=== PATIENT | male | born 1965 | race Caucasian/White ===

== ENCOUNTER 2017-10-20 10:13 | Inpatient (IN) | payer OTHER ==
[~2017-10-20] VITALS: Ht 177.8 cm; Wt 93.2 kg
[~2017-10-20 10:13] MED LIST: AMLO10 PO; ASPI81CH PO; CODBUTACEC PO; DOXY100 PO; HYDACE5 PO; HYDCHL25 PO; INSDET100 SQ; INSLIS75I SC; LISHYD2012 PO; LISI20 PO; METF500 PO; NEBI10 PO; NORT25 PO; OMEP20ER PO; PRAV20 PO; SPIR25 PO; SUMA25 PO
[2017-10-20 10:46] LABS: BASOPHILS ABSOLUTE AUTO 0.04 K/mm3 (0.00-0.23); BASOPHILS PERCENT AUTO 0 % (0-2); EOSINOPHILS ABSOLUTE AUTO 0.18 K/mm3 (0.00-0.68); EOSINOPHILS PERCENT AUTO 2 % (0-6); Hematocrit 39.7 % (37.0-53.0); Hemoglobin 12.5 g/dL (13.5-17.5); IMMATURE GRAN ABSOLUTE AUTO 0.05 K/mm3 (0.00-0.10); IMMATURE GRAN PERCENT AUTO 1 % (0-1); LYMPHOCYTES ABSOLUTE AUTO 1.65 K/mm3 (0.84-5.20); LYMPHOCYTES PERCENT AUTO 16 % (21-46); MONOCYTES ABSOLUTE AUTO 0.64 K/mm3 (0.16-1.47); MONOCYTES PERCENT AUTO 6 % (4-13); Mean Corpuscular HGB Conc 31.5 g/dL (31.5-36.5); Mean Corpuscular Volume 83 fL (80-100); Mean Platelet Volume 9.6 fL (9.1-12.4); NEUTROPHILS ABSOLUTE AUTO 7.69 K/mm3 (1.96-9.15); NEUTROPHILS PERCENT AUTO 75 % (41-73); Platelet Count 338 K/mm3 (150-400); RDW Coefficient Variation 14.1 % (11.7-14.2); RDW Standard Deviation 42.5 fL (35.1-46.3); White Blood Cell Count 10.25 K/mm3 (4.00-11.30)
[2017-10-20 11:02] LABS: Bicarbonate Venous 23.9 mmol/L (24.0-30.0); PCO2 Venous 37.2 mmHg (38-42); PO2 Venous 189 mmHg (38-42); pH Blood Venous 7.41 (7.34-7.37)
[2017-10-20 11:09] LABS: Troponin I 0.024 ng/mL (0.000-0.040)
[2017-10-20 11:29] LABS: Alanine Aminotransfer (ALT/SGP 14 U/L (12-78); Albumin, Blood 2.4 g/dL (3.4-5.0); Albumin/Globulin Ratio 0.6 (0.8-1.8); Alk Phos 148 U/L (50-136); Anion Gap 8 mmol/L (6-16); Aspartate Aminotrans (AST/SGOT 8 U/L (12-37); Beta-hydroxybutyrate 1.3 mg/dL (0.2-2.8); Bilirubin, Total 0.2 mg/dL (0.1-1.0); Blood Urea Nitrogen 17 mg/dL (8-24); CO2, Blood 25 mmol/L (21-32); Calcium, Blood 8.1 mg/dL (8.5-10.1); Chloride, Blood 101 mmol/L (98-108); Creatinine, Blood 1.06 mg/dL (0.60-1.20); Globulin, Blood 4.3 g/dL (2.2-4.0); Glomerular Filtration Rate >60 (60-); Glucose, Blood 641 mg/dL (70-99); Sodium, Blood 134 mmol/L (136-145); Total Protein, Blood 6.7 g/dL (6.4-8.2)
[2017-10-20 14:08] LABS: Percent Saturation 12.7 % (20.0-50.0)
[2017-10-20 15:11] LABS: Glucose, Blood 610 mg/dL (70-99)
[2017-10-21 02:30] LABS: BASOPHILS ABSOLUTE AUTO 0.04 K/mm3 (0.00-0.23); BASOPHILS PERCENT AUTO 0 % (0-2); EOSINOPHILS ABSOLUTE AUTO 0.21 K/mm3 (0.00-0.68); EOSINOPHILS PERCENT AUTO 2 % (0-6); Hematocrit 34.3 % (37.0-53.0); Hemoglobin 10.9 g/dL (13.5-17.5); IMMATURE GRAN ABSOLUTE AUTO 0.08 K/mm3 (0.00-0.10); IMMATURE GRAN PERCENT AUTO 1 % (0-1); LYMPHOCYTES ABSOLUTE AUTO 2.21 K/mm3 (0.84-5.20); LYMPHOCYTES PERCENT AUTO 22 % (21-46); MONOCYTES ABSOLUTE AUTO 0.69 K/mm3 (0.16-1.47); MONOCYTES PERCENT AUTO 7 % (4-13); Mean Corpuscular HGB Conc 31.8 g/dL (31.5-36.5); Mean Corpuscular Volume 82 fL (80-100); Mean Platelet Volume 9.7 fL (9.1-12.4); NEUTROPHILS ABSOLUTE AUTO 7.02 K/mm3 (1.96-9.15); NEUTROPHILS PERCENT AUTO 69 % (41-73); Platelet Count 304 K/mm3 (150-400); RDW Coefficient Variation 14.3 % (11.7-14.2); RDW Standard Deviation 41.9 fL (35.1-46.3); White Blood Cell Count 10.25 K/mm3 (4.00-11.30)
[2017-10-21 02:36] LABS: Alanine Aminotransfer (ALT/SGP 12 U/L (12-78); Albumin, Blood 2.2 g/dL (3.4-5.0); Albumin/Globulin Ratio 0.6 (0.8-1.8); Alk Phos 94 U/L (50-136); Anion Gap 7 mmol/L (6-16); Aspartate Aminotrans (AST/SGOT 7 U/L (12-37); Bilirubin, Total 0.2 mg/dL (0.1-1.0); Blood Urea Nitrogen 17 mg/dL (8-24); Bun/Creatinine Ratio 19.8 (12.0-20.0); CO2, Blood 24 mmol/L (21-32); Calcium, Blood 7.8 mg/dL (8.5-10.1); Chloride, Blood 107 mmol/L (98-108); Creatinine, Blood 0.86 mg/dL (0.60-1.20); Globulin, Blood 3.8 g/dL (2.2-4.0); Glomerular Filtration Rate >60 (60-); Glucose, Blood 150 mg/dL (70-99); Potassium, Blood 3.4 mmol/L (3.5-5.5); Sodium, Blood 138 mmol/L (136-145)
[2017-10-22 05:41] LABS: Anion Gap 10 mmol/L (6-16); Blood Urea Nitrogen 13 mg/dL (8-24); Bun/Creatinine Ratio 15.4 (12.0-20.0); CHOL/HDL RATIO 7.4; CO2, Blood 23 mmol/L (21-32); Calcium, Blood 8.3 mg/dL (8.5-10.1); Chloride, Blood 101 mmol/L (98-108); Cholesterol 266 mg/dL (50-200); Creatinine, Blood 0.85 mg/dL (0.60-1.20); Glomerular Filtration Rate >60 (60-); Glucose, Blood 200 mg/dL (70-99); HDL Cholesterol 36 mg/dL (>39); LDL/HDL RATIO 4.4; Low Density Lipoprotein Chol 158 mg/dL (0-110); Potassium, Blood 3.4 mmol/L (3.5-5.5); Sodium, Blood 134 mmol/L (136-145); Triglycerides 362 mg/dL (30-160); Very Low Density Lipoprot Chol 72 mg/dL (6-32)
[2017-10-22] MEDS ORDERED: ASPI81CH PO (14:28)
[2017-10-22] MEDS ORDERED: ATOR10 PO (14:29)
[2017-10-22] MEDS ORDERED: FAMO20 PO (14:30)
[2017-10-22] MEDS ORDERED: Novolog Fl100 UNIT/1 INJ (14:32)
[2017-10-22] MEDS ORDERED: LEVEMIR FL100 UNIT/1 SC ×2 (14:32→14:34)
[2017-10-22] MEDS ORDERED: INSDET100 (14:33)
[2017-10-22] MEDS ORDERED: LISI20 PO (14:35)
[2017-10-22] MEDS ORDERED: METO25 PO (14:36)
[2017-10-22] MEDS ORDERED: SUMA25 PO (14:38)
[2017-10-22] MEDS ORDERED: METO5A PO (14:39)
== END 2017-10-22 15:40 | disposition home or self-care (01) | DRG 305 ==
LOC: ER 10:13 → MEDS 12:59
PROVIDERS: Emergency Medicine; Internal Medicine
DX: I16.0 Hypertensive urgency (principal); K31.84 Gastroparesis; E11.65 Type 2 diabetes mellitus with hyperglycemia; E11.43 Type 2 diabetes mellitus with diabetic autonomic (poly)neuropathy; I25.10 Atherosclerotic heart disease of native coronary artery without angina pectoris; K21.9 Gastro-esophageal reflux disease without esophagitis; F17.200 Nicotine dependence, unspecified, uncomplicated; E78.5 Hyperlipidemia, unspecified; J44.9 Chronic obstructive pulmonary disease, unspecified; D64.9 Anemia, unspecified; G43.909 Migraine, unspecified, not intractable, without status migrainosus; Z79.82 Long term (current) use of aspirin; Z79.899 Other long term (current) drug therapy; Z79.4 Long term (current) use of insulin; Z88.2 Allergy status to sulfonamides
CPT/HCPCS: 36415; 71046; 80048; 80053; 80061; 82010; 82728; 82803; 82947; 83036; 83540; 83550; 83605; 83880; 84443; 84484; 85025; 93005; 93010; 93306; 96361; 96374; 96375; 99285; J0360; J1200; J1650; J1815; J1817; J1885; J2270; J2405; J2765; J7030

== ENCOUNTER 2018-12-14 09:41 | Observation (INO) | payer OTHER ==
[~2018-12-14] VITALS: Ht 175.3 cm; Wt 99.4 kg
[~2018-12-14 09:41] MED LIST changes: +ATOR20 PO; +Aspirin EC81 MG PO; +FAMO20 PO; +INSDET100; +INSULANPEN SC; +LEVEMIR FL100 UNIT/1 SC; +METO25 PO; +METO5A PO; +Novolog Fl100 UNIT/1 SC; +ZESTRIL40 MG PO
[2018-12-14 10:52] LABS: BASOPHILS ABSOLUTE AUTO 0.03 K/mm3 (0.00-0.23); BASOPHILS PERCENT AUTO 0 % (0-2); EOSINOPHILS ABSOLUTE AUTO 0.33 K/mm3 (0.00-0.68); EOSINOPHILS PERCENT AUTO 3 % (0-6); Hematocrit 42.6 % (37.0-53.0); Hemoglobin 13.1 g/dL (13.5-17.5); IMMATURE GRAN ABSOLUTE AUTO 0.04 K/mm3 (0.00-0.10); IMMATURE GRAN PERCENT AUTO 0 % (0-1); LYMPHOCYTES ABSOLUTE AUTO 1.34 K/mm3 (0.84-5.20); LYMPHOCYTES PERCENT AUTO 12 % (21-46); MONOCYTES PERCENT AUTO 8 % (4-13); Mean Corpuscular HGB 27.1 pg (26.0-34.0); Mean Corpuscular HGB Conc 30.8 g/dL (31.5-36.5); Mean Corpuscular Volume 88 fL (80-100); Mean Platelet Volume 9.4 fL (9.1-12.4); NEUTROPHILS PERCENT AUTO 77 % (41-73); Platelet Count 303 K/mm3 (150-400); RDW Coefficient Variation 15.7 % (11.7-14.2); RDW Standard Deviation 50.3 fL (35.1-46.3); Red Blood Cell Count 4.84 M/mm3 (4.30-5.90); White Blood Cell Count 11.64 K/mm3 (4.00-11.30)
[2018-12-14] MEDS ORDERED: TOPI50 PO ×2 (10:54)
[2018-12-14] MEDS ORDERED: NAPR500 PO (10:59)
[2018-12-14] MEDS ORDERED: NORT25 PO (10:59)
[2018-12-14 11:18] LABS: Albumin, Blood 2.9 g/dL (3.4-5.0); Albumin/Globulin Ratio 0.7 (0.8-1.8); Bilirubin, Total 0.4 mg/dL (0.1-1.0); Bun/Creatinine Ratio 12.5 (12.0-20.0); Calcium, Blood 8.5 mg/dL (8.5-10.1); Creatinine, Blood 1.36 mg/dL (0.60-1.20); Globulin, Blood 3.9 g/dL (2.2-4.0); Potassium, Blood 3.7 mmol/L (3.5-5.5); Total Protein, Blood 6.8 g/dL (6.4-8.2); Troponin I 0.207 ng/mL (0.000-0.040)
[2018-12-14] MEDS ORDERED: VITAMIN D35000 UNIT PO (13:17)
--- NOTE | 2018-12-14 19:41 | NUR ---
SHIFT SUMMARY PT A&OX4, VSS, BEDREST, URINAL FOR VOIDING, VOIDING WELL. DEVON PO, DENIES N&V. EDU TO [facility] Q1H. FRIENDS AT BEDSIDE. REPORT GIVEN TO LEONARD WOODARD.
--- NOTE | 2018-12-15 04:26 | NUR ---
SUMMARY: NO ACUTE CONCERNS THIS SHIFT. PT VSS, A/O, TELE NSR. PT CONTINUES TO REPORT NUMBNESS TO ENTIRE R SIDE, HAS FULL ROM OF RIDE SIDE, UP WITH SBA. PT HAS BEEN GIVEN PAIN MEDS PRN, PT REPORT PAIN AT R ELBOW... OTHERWISE PT ABLE TO SLEEP. NO SAFETY CONCERNS.
[2018-12-15 04:58] LABS: Bun/Creatinine Ratio 14.5 (12.0-20.0); Calcium, Blood 8.5 mg/dL (8.5-10.1); Creatinine, Blood 1.45 mg/dL (0.60-1.20); Potassium, Blood 3.5 mmol/L (3.5-5.5)
[2018-12-15] MEDS ORDERED: CLOP75 PO (16:25)
[2018-12-15] MEDS ORDERED: LIDALL 4%-1% P1 EACH TOP (16:28)
--- NOTE | 2018-12-15 17:22 | NUR ---
discharge instructions reviewed with patient and patient questions answered. patient is waiting for his ride to arrive to take him home
--- NOTE | 2018-12-15 18:08 | NUR ---
discharge patient discharged with friend at [phone]
== END 2018-12-15 18:28 | disposition home or self-care (01) ==
LOC: ER 09:41 → SURS 09:42
PROVIDERS: Emergency Medicine; ADMIT Internal Medicine
DX: I63.9 Cerebral infarction, unspecified (principal); I16.0 Hypertensive urgency; N17.9 Acute kidney failure, unspecified; I10 Essential (primary) hypertension; E11.9 Type 2 diabetes mellitus without complications; I25.10 Atherosclerotic heart disease of native coronary artery without angina pectoris; Z23 Encounter for immunization; K21.9 Gastro-esophageal reflux disease without esophagitis; E78.5 Hyperlipidemia, unspecified; J44.9 Chronic obstructive pulmonary disease, unspecified; Z87.891 Personal history of nicotine dependence; Z88.2 Allergy status to sulfonamides; Z79.899 Other long term (current) drug therapy; Z79.82 Long term (current) use of aspirin; Z79.4 Long term (current) use of insulin
CPT/HCPCS: 36415; 70450; 70551; 71046; 73080; 80048; 80053; 82947; 83880; 84484; 85025; 90686; 93005; 93010; 93880; 96372; 96374; 96375; 97110; 97116; 97161; 99285-25; G0008; G0378; J0360; J1170; J1650; J1815; J1940; J2405

== ENCOUNTER 2019-02-05 08:10 | Observation (INO) | payer OTHER ==
[~2019-02-05] VITALS: Ht 175.3 cm; Wt 101.3 kg
[~2019-02-05 08:10] MED LIST changes: -ATOR20 PO; +ATOR80 PO; +CLOP75 PO; +LIDALL 4%-1% P1 EACH TOP; +NAPR500 PO; +TOPI50 PO; +VITAMIN D35000 UNIT PO
[2019-02-05] MEDS ORDERED: AMLO10 PO (09:23)
[2019-02-05] MEDS ORDERED: METF500 PO (09:23)
[2019-02-05] MEDS ORDERED: Bisoprolol Fumar5 MG PO (09:24)
[2019-02-05] MEDS ORDERED: BASAGLAR K100 UNIT/1 SC (12:30)
[2019-02-05] MEDS ORDERED: NOVOLOG FL100 UNIT/1 SC (12:31)
--- NOTE | 2019-02-05 13:18 | NUR ---
ASSUMED CARE / [facility]IVAL FROM [facility]: BEDSIDE REPORT RECEIVED WHEN PT ARRIVED AT 1200. HE IS A&O, PLEASANT & COOPERATIVE. HE ARRIVED VIA WC & IS ABLE TO TX FROM WC TO BED W/ SBA. TR BAND TO R RADIAL SITE W/ [address]. SITE IS FREE OF BLEEDING, BRUISING OR HEMATOMA FORMATION ON ASSUMING CARE. CAP REFILL < 3 SECONDS, PT HAS CHRONIC NUMBNESS TO R SIDE R/T HX CVA NOVEMBER 2018, HE STS THIS IS UNCHANGED W/ TR BAND IN PLACE. ASSESSMENT CHARTED, HOME MEDS HAVE BEEN ORDERED FOR TONIGHT & IN AM. PLAN IS FOR CONTINUED OBSERVATION TONIGHT & D/C HOME IN AM. WILL DEFLATE TR BAND TOLERATED & DOCUMENT IN WOUND REASSESSMENT. WILL CONTINUE TO MONITOR & UPDATE NEEDED.
--- NOTE | 2019-02-05 13:41 | NUR ---
R RADIAL SITE OOZING: ON ASSESSMENT OF RADIAL SITE, THE AREA IS OOZING A SMALL AMNT OF SS DRAINAGE. 1 CC AIR ADDED TO BAND W/ RESOLUTION OF BLEEDING. WILL DELAY TR BAND DEFLATION FOR APPROX 30 MINS & REASSESS AT THAT TIME.
--- NOTE | 2019-02-05 14:11 | NUR ---
Patient is resting when I entered the room but easily awoke at the sound of his name. Therapeutic alliance is easily established so patient openly shared about how rough the last few years have been. Patient admitted that he spent much effort increasing many areas of his life and yet did not take care of himself physically. 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 I listened empathically, facilitaed life review, explored patient's belief system and sources meaning, encouraged self care and provided pastoral cousel and prayer. Patient responded well and showed signs of restored hunter and hope. I will continue to remain available.
--- NOTE | 2019-02-05 17:29 | NUR ---
SHIFT SUMMARY: NO ACUTE CHANGES SINCE ASSUMING CARE. PT REMAINS A&O, PLEASANT & COOPERATIVE. R WRIST IMMOBILIZER IN PLACE, TR BAND DEFLATION DOCUMENTED IN WOUND CARE INTERVENTION. SHEATH SITE TO R AC IS WNL, SLIGHT AMNT DRIED BLOOD ON NAA DRESSING IS UNCHANGED. LS ARE CLEAR T/O, PT REMAINS ON RA W/ O2 SATS > 92%. MONITOR SHOWS NSR W/ HR 80s, BP STABLE. HTN AT BASELINE. BT x4, PT HAS HEALTHY APPETITE. LAST BM 02/03/19. PT STS IT IS NORMAL FOR HIM TO GO 2-3 DAYS W/O A BM. HE IS VOIDING CLEAR, YELLOW URINE W/O DIFFICULTY USING URINAL AT BEDSIDE. PT's STENT CARD HAS BEEN PLACED IN D/C FOLDER FOR ANTICIPATED D/C TOMORROW. WILL CONTINUE TO MONITOR & UPDATE NEEDED.
--- NOTE | 2019-02-05 22:53 | NUR ---
CARE ASSUMED REPORT RECEIVED, CARE ASSUMED AT 1900. PT ALERT, ORIENTED. PT DENIES CHEST PAIN/DISCOMFORT. RADIAL ACCESS SITE AND AC ACCESS SITE STABLE, ASSESSMENTS VERIFIED UNCHANGED WITH OFFGOING NURSE VANCE SILVESTRE. MONITOR SHOWS NORMAL SINUS RHYTHM, RATE 70'S-80'S. BP ELEVATED, SCHEDULED BP MEDS ADMIN. PT AFEBRILE. SHE SHIFT ASSESSMENT. PT CALLING APPROPRIATELY FOR NEEDS, STAND BY ASSIST FOR ADL'S.
--- NOTE | 2019-02-05 23:55 | NUR ---
DR. NAVARRO COMMUNICATION SPOKE WITH DR. NAVARRO REGARDING PT'S BLOOD PRESSURE TRENDS. NEW ORDER FOR PO METOPROLOL AND NORVASC, SEE ORDERS. ALSO RECEIVED ORDER FOR PRN HYDRALAZINE BUT PER DR. NAVARRO, WAIT APPROX 2 HOURS AND REASSESS PRIOR TO ADMIN OF PO MEDS TO GIVE HYDRALAZINE.
--- NOTE | 2019-02-06 02:46 | NUR ---
DR. NAVARRO COMMUNICATION UPDATED DR. NAVARRO ON MOST RECENT ASSESSMENTS AND VITALS. NEW ORDER FOR LASIX AND POTASSIUM. SEE ORDERS.
[2019-02-06 03:45] LABS: Bun/Creatinine Ratio 13.2 (12.0-20.0); Calcium, Blood 8.4 mg/dL (8.5-10.1); Creatinine, Blood 1.36 mg/dL (0.60-1.20); Magnesium, Blood 2.2 mg/dL (1.6-2.4); Potassium, Blood 3.8 mmol/L (3.5-5.5)
--- NOTE | 2019-02-06 06:32 | NUR ---
DR. RAMON NAVARRO IN FOR MORNING ASSESSMENT. PLAN FOR DISCHARGE THIS MORNING.
--- NOTE | 2019-02-06 07:25 | NUR ---
REPORT TO VANCE DOWNING TO ASSUME CARE
--- NOTE | 2019-02-06 07:26 | NUR ---
SUMMARY ASSESSMENTS UNCHANGED. BP REMAINS HIGH. DISCUSSED WITH DR. NAVARRO ON MD ROUNDS. SEE FLOWSHEET. OTHERWISE, NO CHANGES. PT CALLING APPROPRIATELY FOR NEEDS THROUGHOUT NIGHT.
--- NOTE | 2019-02-06 07:30 | NUR ---
NURSING SUMMARY ALERT AND ORIENTED X 4. LUNGS CLEAR, ROOM AIR. SR ON MONITOR, NO ECTOPY NOTED. HYPERTENSIVE SBP 180'S, WILL GIVE MORNING ROUTINE ANTI-HYPERTENSIVES EARLY. RIGHT RADIAL CATH SITE WITH OPSITE IN PLACE, CDI, NO S/S OF BLEEDING OR HEMATOMA, ARMBOARD IN PLACE. RIGHT AC SITE WITH GUAZE DRESSING COVERED WITH OPSITE WITH SMALL OLD BLOODY DRAINAGE SPOT ON GUAZE, NO S/S OF BLEEDING OR HEMATOMA. TOLERATING ADA DIET, BLOOD SUGAR 147 THIS AM. VOIDS PER URINAL WNL. LEFT HAND IV SITE FLUSHES WELL. DISCHARGE HOME ORDER AFTER PT HAS MORNING MEDICATIONS. PT STATES HIS RIDE HOME CAN'T MAKE IT TO PICK HIM UP UNTIL 1030.
[2019-02-06] MEDS ORDERED: AMLO10 PO (08:53)
[2019-02-06] MEDS ORDERED: LISI5 PO (08:53)
[2019-02-06] MEDS ORDERED: TORSE20 PO (08:54)
[2019-02-06] MEDS ORDERED: METF500 PO (08:56)
--- NOTE | 2019-02-06 09:30 | NUR ---
PROVIDED PT WITH DISCHARGE INSTRUCTIONS AND ANSWERED ALL QUESTIONS. REMOVED IV WNL. PATIENT AWAITING ARRIVAL OF HIS RIDE HOME.
--- NOTE | 2019-02-06 10:40 | NUR ---
PATIENT AMBULATED OUT OF THE HOSPITAL WITH ME, STEADY GAIT. DISCHARGED HOME.
== END 2019-02-06 10:40 | disposition home or self-care (01) ==
LOC: MHTC 08:10 → ICUE 11:56 → MHTC 12:11 → ICUE 12:11
PROVIDERS: ADMIT Internal Medicine Cardiovascular Disease
DX: I25.10 Atherosclerotic heart disease of native coronary artery without angina pectoris (principal); I42.9 Cardiomyopathy, unspecified; I27.20 Pulmonary hypertension, unspecified; I77.811 Abdominal aortic ectasia; I12.9 Hypertensive chronic kidney disease with stage 1 through stage 4 chronic kidney disease, or unspecified chronic kidney disease; E11.22 Type 2 diabetes mellitus with diabetic chronic kidney disease; N18.9 Chronic kidney disease, unspecified; J44.9 Chronic obstructive pulmonary disease, unspecified; G47.33 Obstructive sleep apnea (adult) (pediatric); E78.5 Hyperlipidemia, unspecified; G43.909 Migraine, unspecified, not intractable, without status migrainosus; F17.210 Nicotine dependence, cigarettes, uncomplicated; Z86.73 Personal history of transient ischemic attack (TIA), and cerebral infarction without residual deficits; Z79.899 Other long term (current) drug therapy; Z79.4 Long term (current) use of insulin; Z79.82 Long term (current) use of aspirin; Z79.01 Long term (current) use of anticoagulants; Z88.2 Allergy status to sulfonamides; Z99.89 Dependence on other enabling machines and devices
CPT/HCPCS: 36415; 80048; 82947; 83735; 83880; 93005; 93010; 93460; 93571; 96375; 99152; 99153; C1725; C1769; C1874; C1887; C1894; C9600; G0378; J0360; J1644; J1940; J2250; J3010; J7030; Q9967

== ENCOUNTER 2020-06-03 09:58 | Emergency (ER) | payer OTHER ==
[~2020-06-03] VITALS: Ht 177.8 cm; Wt 103.0 kg
[~2020-06-03 09:58] MED LIST changes: +ACET325 PO; +Aspir 8181 MG PO; +BASAGLAR K100 UNIT/1 SC; +BISA10S PR; +Bisoprolol Fumar5 MG PO; +DOCU100 PO; +ENOX40I SC; +GABA300 PO; +HUMULIN R100 UNIT/2 SC; +LISI5 PO; +METO50ER PO; +Milk Of Ma400 MG/5 M PO; +NOVOLOG FL100 UNIT/1 SC; +NYAMYC15 G1 TOP; +ONDA4ODT MM; +SENN187 PO; +TAMS.4ER PO; +TORSE20 PO; +XARELTO15 MG PO
[2020-06-03] MEDS ORDERED: CLON.1 PO (10:19)
[2020-06-03] MEDS ORDERED: HYDRA25 PO (10:23)
[2020-06-03] MEDS ORDERED: Prinivil10 MG PO (10:24)
[2020-06-03] MEDS ORDERED: MECL12.5 PO (10:26)
[2020-06-03] MEDS ORDERED: TORSE20 PO (10:27)
[2020-06-03] MEDS ORDERED: BUTALBITAL-ASA1 EACH PO (10:29)
[2020-06-03] MEDS ORDERED: HUMALOG100 UNIT/1 SC ×2 (10:36→10:43)
[2020-06-03 10:38] LABS: BASOPHILS ABSOLUTE AUTO 0.05 K/mm3 (0.00-0.23); BASOPHILS PERCENT AUTO 0 % (0-2); EOSINOPHILS ABSOLUTE AUTO 0.38 K/mm3 (0.00-0.68); EOSINOPHILS PERCENT AUTO 3 % (0-6); Hematocrit 37.4 % (37.0-53.0); IMMATURE GRAN ABSOLUTE AUTO 0.05 K/mm3 (0.00-0.10); IMMATURE GRAN PERCENT AUTO 0 % (0-1); LYMPHOCYTES ABSOLUTE AUTO 2.01 K/mm3 (0.84-5.20); LYMPHOCYTES PERCENT AUTO 15 % (21-46); MONOCYTES ABSOLUTE AUTO 0.71 K/mm3 (0.16-1.47); MONOCYTES PERCENT AUTO 5 % (4-13); Mean Corpuscular HGB Conc 32.1 g/dL (31.5-36.5); Mean Corpuscular Volume 87 fL (80-100); Mean Platelet Volume 9.8 fL (9.1-12.4); NEUTROPHILS ABSOLUTE AUTO 9.96 K/mm3 (1.96-9.15); NEUTROPHILS PERCENT AUTO 76 % (41-73); Platelet Count 355 K/mm3 (150-400); RDW Coefficient Variation 13.5 % (11.7-14.2); RDW Standard Deviation 43.1 fL (35.1-46.3); Red Blood Cell Count 4.28 M/mm3 (4.30-5.90); White Blood Cell Count 13.16 K/mm3 (4.00-11.30)
[2020-06-03] MEDS ORDERED: Norco 5-325 Ta1 EACH PO (10:39)
[2020-06-03 10:52] LABS: Albumin, Blood 2.4 g/dL (3.4-5.0); Albumin/Globulin Ratio 0.5 (0.8-1.8); Bilirubin, Total 0.2 mg/dL (0.1-1.0); Bun/Creatinine Ratio 16.8 (12.0-20.0); Calcium, Blood 8.6 mg/dL (8.5-10.1); Creatinine, Blood 1.9 mg/dL (0.60-1.20); Globulin, Blood 5.3 g/dL (2.2-4.0); Total Protein, Blood 7.7 g/dL (6.4-8.2)
[2020-06-03 11:01] LABS: International Normalized Ratio 1.07; Prothrombin Time Results 11.4 Sec (9.7-11.5)
[2020-06-03] MEDS ORDERED: MECL25 PO (13:30)
[2020-06-03] MEDS ORDERED: ONDA4ODT MM (13:30)
== END 2020-06-03 14:10 | disposition home or self-care (01) ==
LOC: ER 09:58
PROVIDERS: Emergency Medicine
DX: H81.10 Benign paroxysmal vertigo, unspecified ear (principal); E11.65 Type 2 diabetes mellitus with hyperglycemia; I10 Essential (primary) hypertension; I25.10 Atherosclerotic heart disease of native coronary artery without angina pectoris; K21.9 Gastro-esophageal reflux disease without esophagitis; F17.210 Nicotine dependence, cigarettes, uncomplicated; Z88.2 Allergy status to sulfonamides; Z79.899 Other long term (current) drug therapy; Z79.4 Long term (current) use of insulin; Z79.82 Long term (current) use of aspirin
CPT/HCPCS: 36415; 70450; 70496; 70498; 80053; 82947; 85025; 85610; 93005; 93010; 96374-59; 96375; 99284-25; J0780; J1200; Q9967

== ENCOUNTER → 2020-06-19 | Outpatient (CLI) | payer OTHER ==
[~2020-06-19] MED LIST changes: +BUTALBITAL-ASA1 EACH PO; +CLON.1 PO; +HUMALOG100 UNIT/1 SC; +HYDRA25 PO; +MECL12.5 PO; +MECL25 PO; +Norco 5-325 Ta1 EACH PO; +Prinivil10 MG PO
== END | disposition home or self-care (01) ==
LOC: LAB EV 14:11 → LAB SHORT 14:11
DX: L03.90 Cellulitis, unspecified (principal)
CPT/HCPCS: 87070; 87075; 87076; 87185; 87205

== ENCOUNTER → 2020-07-04 | Outpatient (CLI) | payer OTHER ==
[2020-07-04 14:37] LABS: Protein, Urine Quantitative 185.4 mg/dL (0.0-11.9)
== END | disposition home or self-care (01) ==
LOC: LAB 08:10 → LAB SHORT 08:10
PROVIDERS: Internal Medicine Nephrology
DX: I12.9 Hypertensive chronic kidney disease with stage 1 through stage 4 chronic kidney disease, or unspecified chronic kidney disease (principal); N18.30 Chronic kidney disease, stage 3 unspecified; D63.1 Anemia in chronic kidney disease; N25.81 Secondary hyperparathyroidism of renal origin; E55.9 Vitamin D deficiency, unspecified; E78.00 Pure hypercholesterolemia, unspecified; G60.9 Hereditary and idiopathic neuropathy, unspecified; R76.9 Abnormal immunological finding in serum, unspecified; R94.5 Abnormal results of liver function studies
CPT/HCPCS: 81050; 82043; 82570; 84156

== ENCOUNTER 2020-08-25 10:59 | Inpatient (IN) | payer OTHER ==
[~2020-08-25] VITALS: Ht 177.8 cm; Wt 103.6 kg
[~2020-08-25 10:59] MED LIST changes: -ATOR80 PO; -Aspir 8181 MG PO; -BASAGLAR K100 UNIT/1 SC; -CLON.1 PO; -GABA300 PO; -HUMALOG100 UNIT/1 SC; -MECL12.5 PO; -Prinivil10 MG PO; -TAMS.4ER PO; -XARELTO15 MG PO
[2020-08-25 11:43] LABS: BASOPHILS ABSOLUTE AUTO 0.04 K/mm3 (0.00-0.23); BASOPHILS PERCENT AUTO 0 % (0-2); EOSINOPHILS ABSOLUTE AUTO 0.33 K/mm3 (0.00-0.68); EOSINOPHILS PERCENT AUTO 3 % (0-6); Hematocrit 24.5 % (37.0-53.0); Hemoglobin 7.3 g/dL (13.5-17.5); IMMATURE GRAN ABSOLUTE AUTO 0.03 K/mm3 (0.00-0.10); IMMATURE GRAN PERCENT AUTO 0 % (0-1); LYMPHOCYTES ABSOLUTE AUTO 1.81 K/mm3 (0.84-5.20); LYMPHOCYTES PERCENT AUTO 18 % (21-46); MONOCYTES ABSOLUTE AUTO 0.72 K/mm3 (0.16-1.47); MONOCYTES PERCENT AUTO 7 % (4-13); Mean Corpuscular HGB 26.4 pg (26.0-34.0); Mean Corpuscular HGB Conc 29.8 g/dL (31.5-36.5); Mean Corpuscular Volume 88 fL (80-100); Mean Platelet Volume 9.8 fL (9.1-12.4); NEUTROPHILS ABSOLUTE AUTO 7.34 K/mm3 (1.96-9.15); NEUTROPHILS PERCENT AUTO 72 % (41-73); Platelet Count 454 K/mm3 (150-400); RDW Standard Deviation 51.5 fL (35.1-46.3); Red Blood Cell Count 2.77 M/mm3 (4.30-5.90); White Blood Cell Count 10.27 K/mm3 (4.00-11.30)
[2020-08-25 11:59] LABS: Albumin, Blood 2.4 g/dL (3.4-5.0); Albumin/Globulin Ratio 0.6 (0.8-1.8); Bilirubin, Total 0.2 mg/dL (0.1-1.0); Bun/Creatinine Ratio 9.8 (12.0-20.0); Calcium, Blood 8.7 mg/dL (8.5-10.1); Creatinine, Blood 1.63 mg/dL (0.60-1.20); Globulin, Blood 4.2 g/dL (2.2-4.0); Potassium, Blood 3.6 mmol/L (3.5-5.5); Total Protein, Blood 6.6 g/dL (6.4-8.2); Troponin I 0.099 ng/mL (0.000-0.040)
[2020-08-25 12:50] LABS: Influenza A, PCR Negative (NEGATIVE); Influenza B, PCR Negative (NEGATIVE); Resp Syncytial Virus, PCR Negative (NEGATIVE); SARS-Cov-2 (COVID-19) PCR, MMC Negative (NEGATIVE)
[2020-08-25] MEDS ORDERED: HUMALOG100 UNIT/1 SC (14:13)
[2020-08-25] MEDS ORDERED: BUPR150ER PO (14:16)
[2020-08-25] MEDS ORDERED: CLON.1 PO (14:17)
[2020-08-25] MEDS ORDERED: ATOR80 PO (14:17)
[2020-08-25] MEDS ORDERED: TAMS.4ER PO (14:17)
[2020-08-25] MEDS ORDERED: TORSE20 PO (14:18)
[2020-08-25] MEDS ORDERED: LISI20 PO (14:18)
[2020-08-25] MEDS ORDERED: POTA10T PO (14:21)
[2020-08-25] MEDS ORDERED: Bisoprolol Fuma10 MG PO (14:22)
[2020-08-25] MEDS ORDERED: XARELTO15 MG PO (14:22)
[2020-08-25] MEDS ORDERED: AMLO5 PO (14:23)
[2020-08-25] MEDS ORDERED: Doxycycline Mo100 M1 PO (14:24)
[2020-08-25] MEDS ORDERED: METF500C PO (14:25)
[2020-08-25] MEDS ORDERED: BASAGLAR K100 UNIT/6 SC ×3 (14:27→20:25)
[2020-08-25] MEDS ORDERED: GABA300 PO (14:46)
[2020-08-25] MEDS ORDERED: Aspir 8181 MG PO (14:46)
[2020-08-25] MEDS ORDERED: MECL25 PO (14:47)
[2020-08-25] MEDS ORDERED: TERB250 PO (14:48)
[2020-08-25] MEDS ORDERED: FURO20 PO (14:49)
[2020-08-25] MEDS ORDERED: HYDRA25 PO (14:49)
[2020-08-25 15:46] LABS: Percent Saturation 5.8 % (20.0-50.0)
[2020-08-25 17:31] LABS: Hematocrit 21.6 % (37.0-53.0); Hemoglobin 6.4 g/dL (13.5-17.5)
--- NOTE | 2020-08-25 18:39 | NUR ---
PT ARRIVED TO PCU 4 VIA GURNEY FROM ED, REPORT WAS OBTAINED, PT DOESN'T FEEL THAT HE CAN STAND AND TRANSFER TO BED, SCOOTED HIMSELF OVER, REPORTS HE IS HAVING DIZZINES FOR A FEW DAYS, A/OX3, PLEASANT AND COOPERATIVE WITH CARE, FOLLOWS COMMANDS WELL, STATES HE HAS SOME PAIN MID STERNAL C.P., 6/10, SLIGHTLY SOB, PLACED HIM ON 2 LITERS 02 VIA N/C, NO COUGH NOTED OR REPORTED, HRR, TELE IN PLACE RUNNING SR PER MONITOR, SEE STRIP, +1 EDEMA NOTED TO B/L LE, PPP+2, CAP REFILL <3SEC, VS STABLE, AFEBRILE, IV SITE IS CLEAR AND PATENT, BTX4, ABD FLAT SOFT NONTENDER, VOIDS WITHOUT DIFF, SKIN PALE, S/W/D, PANCHITO SETHI, ORIENTED TO ROOM LAYOUT AND CALL SYSTEM, CALL LIGHT IN REACH.
--- NOTE | 2020-08-25 23:57 | NUR ---
UPDATE PT CONTINUES TO HAVE ELEVATED BP; CURRENTLY 182/102; NOTIFIED, NEW ORDER FOR 1X HYDRALYZINE GIVEN; REFER TO EMAR.
[2020-08-26 00:36] LABS: Hematocrit 25.2 % (37.0-53.0); Hemoglobin 7.5 g/dL (13.5-17.5)
--- NOTE | 2020-08-26 06:12 | NUR ---
SHIFT SUMMARY PT A&O; BP ELEVATED; MEDICATED PER EMAR AND CHANGE OF BP CUFF, IMPROVED TO 153/75; NSR NOTED ON TELE W/ HR 70'S; 1 UNIT PRBC ADMINISTERED; AM HGB 7.5; C/O HEADACHE AND CHEST PAIN; FENTANYL ADMINISTERED 1X THIS SHIFT; PT SLEPT ON AND OFF T/O SHIFT; CURRENTLY RESTING IN BED W/ TV ON, NO DISTRESS NOTED; CALLS APPROPRIATELY AND MAKES NEEDS KNOWN; CALL LIGHT IN REACH; BED IN LOWEST POSITION; WILL COTNINUE TO MONITOR CLOSELY UNTIL HAND OFF TO DAY SHIFT RN.
[2020-08-26 06:47] LABS: Hematocrit 24.4 % (37.0-53.0); Hemoglobin 7.3 g/dL (13.5-17.5)
[2020-08-26 07:03] LABS: Albumin, Blood 2.2 g/dL (3.4-5.0); Albumin/Globulin Ratio 0.6 (0.8-1.8); Bilirubin, Total 0.2 mg/dL (0.1-1.0); Calcium, Blood 8.5 mg/dL (8.5-10.1); Creatinine, Blood 1.88 mg/dL (0.60-1.20); Globulin, Blood 3.7 g/dL (2.2-4.0); Magnesium, Blood 2.4 mg/dL (1.6-2.4); Potassium, Blood 3.9 mmol/L (3.5-5.5); Total Protein, Blood 5.9 g/dL (6.4-8.2)
[2020-08-26 13:24] LABS: Hematocrit 26.4 % (37.0-53.0); Hemoglobin 7.9 g/dL (13.5-17.5)
[2020-08-26] MEDS ORDERED: BUTALB-ACETAMI1 EAC7 PO (18:19)
--- NOTE | 2020-08-26 18:29 | NUR ---
The pt c/o "terrible migraine headache". States that he takes 'something that starts with a B but I can't remember what it's called'. Called pt's pharmacy [facility] in [place] and got pt's medication information; updated on home med reconciliation and called to ask Dr. Dumont if the pt could have it while in hospital. New orders received.
--- NOTE | 2020-08-26 19:20 | NUR ---
SHIFT SUMMARY PT A&Ox3; CALM AND COOPERATIVE WITH CARE. PT UP WITH 1 PERSON ASSIST TO BATHROOM. PT REPORTS MIGRAINE, MEDICATED WITH FENTYL x1 WTIH MINIAL RESULTS, AND NOTIFIED DR LORENZANA NEW ORDERS FOR FIORICET, MEDICATED PER EMAR. PT REPORTS SOB WITH AMBULATION, SPO2 >90% ON RA. PT DENIES CHEST PAIN, DIZZINESS AND NAUSEA. DR ROJAS AT BEDSIDE THIS AFTERNOON, PLANS FOR SCOPE. DIET CHANGED TO CLEAR LIQUIDS AND PLANS FOR BOWEL PREP IN AM. BP TRENDING DOWN FROM THIS AM, OTHER VSS. NO OTHER ACUTE CHANGES NOTED. REPORT GIVEN TO ONCOMING RN.
--- NOTE | 2020-08-26 19:35 | NUR ---
ASSUMED CARE PT RESTING QUIETLY IN BED; STATES HIS HEADACHE IS IMPROVING; VSS; DENIES CHEST PAIN; O2 SATS >93 ON 2L NC; PT REMINDED OF CL DIET AND GO LYTELY TO START TOMORROW AM; DENIES NEEDS; NO DISTRESS NOTED; CALL LIGHT IN REACH; BED IN LOWEST POSITION.
[2020-08-27 04:17] LABS: BASOPHILS ABSOLUTE AUTO 0.04 K/mm3 (0.00-0.23); BASOPHILS PERCENT AUTO 1 % (0-2); EOSINOPHILS ABSOLUTE AUTO 0.32 K/mm3 (0.00-0.68); EOSINOPHILS PERCENT AUTO 4 % (0-6); Hematocrit 25.8 % (37.0-53.0); Hemoglobin 7.9 g/dL (13.5-17.5); IMMATURE GRAN ABSOLUTE AUTO 0.02 K/mm3 (0.00-0.10); IMMATURE GRAN PERCENT AUTO 0 % (0-1); LYMPHOCYTES ABSOLUTE AUTO 1.72 K/mm3 (0.84-5.20); LYMPHOCYTES PERCENT AUTO 20 % (21-46); MONOCYTES ABSOLUTE AUTO 0.71 K/mm3 (0.16-1.47); MONOCYTES PERCENT AUTO 8 % (4-13); Mean Corpuscular HGB Conc 30.6 g/dL (31.5-36.5); Mean Corpuscular Volume 88 fL (80-100); Mean Platelet Volume 9.5 fL (9.1-12.4); NEUTROPHILS ABSOLUTE AUTO 5.96 K/mm3 (1.96-9.15); NEUTROPHILS PERCENT AUTO 68 % (41-73); Platelet Count 360 K/mm3 (150-400); RDW Coefficient Variation 15.9 % (11.7-14.2); RDW Standard Deviation 51.2 fL (35.1-46.3); Red Blood Cell Count 2.93 M/mm3 (4.30-5.90); White Blood Cell Count 8.77 K/mm3 (4.00-11.30)
[2020-08-27 04:34] LABS: Bun/Creatinine Ratio 11.1 (12.0-20.0); Calcium, Blood 8.3 mg/dL (8.5-10.1); Creatinine, Blood 1.8 mg/dL (0.60-1.20); Potassium, Blood 3.7 mmol/L (3.5-5.5)
--- NOTE | 2020-08-27 06:14 | NUR ---
SHIFT SUMMARY PT A&O X4; COMPLIANT W/ CARE; VSS; BP IMPROVED FROM PREVIOUS SHIFT; NSR NOTED ON TELE W/ HR 60'S; SBA FOR BRP, WEAKNESS NOTED BUT STABLE; CALLS APPROPRIATELY; NO DISTRESS NOTED; CALL LIGHT IN REACH; BED IN LOWEST POSITION; WILL CONTINUE TO MONITOR CLOSELY UNTIL HAND OFF TO DAY SHIFT RN.
--- NOTE | 2020-08-27 17:18 | NUR ---
SHIFT SUMMARY PT A&Ox4. IRRITABLE AT TIMES WHEN ENCOURAGING PT TO COMPLETE BOWEL PREP. PT HAD BM THIS AFTENROON, NO CLEAR; NOTIIFED DR ROJAS, PLANS FOR ADDITIONAL BOWEL PREP AND PROCEDURE TOMORROW. PT REPORTS MIGRAINE /10 THIS AM; REPORTS CHRONIC BACK AND LEG PAIN, DENIES NEEDS FOR MEDICATION AND OTHER INTERVENTIONS. PT DENIES CHEST PAIN, NAUSEA, DIZZINESS, AND SOB. PT ON CLEAR LIQUID DIET. BP ELEVATED AT TIMES, OTHER VSS. NO OTHER ACUTE CHANGES NOTED DURING SHIFT. WILL CONTINUE TO MONITOR UNITL REPORT GIVEN TO ONCOMING RN.
--- NOTE | 2020-08-27 20:08 | NUR ---
ASSUMED CARE RECEIVED REPORT BEDSIDE FROM VANCE GAMEZ; PT SLEEPING; NO DISTRESS NOTED; VSS; O2 SATS >93 ON RA; CALL LIGHT IN REACH; BED IN LOWEST POSITION
--- NOTE | 2020-08-28 06:16 | NUR ---
SHIFT SUMMARY PT A&O X 4; DISGRUNTLED W/ NEED TO BE NPO; VSS; DENIES CHEST PAIN; O2 SATS >93 ON RA; BOWEL PREP TO START AT 0700; CALL LIGHT IN REACH; BED IN LOWEST POSITION; WILL CONTINUE TO MONITOR UNTIL HAND OFF TO DAY SHIFT RN.
--- NOTE | 2020-08-28 14:14 | NUR ---
PATIENT TAKEN FOR COLONOSCOPY, REPORT GIVEN TO LIDIA WOODARD ON MEDICAL.
--- NOTE | 2020-08-28 15:16 | NUR ---
TRANSFERED PT TO [facility] VIA GURNY FROM PCU. History, Chart, Medications and Allergies reviewed before start of procedure. Lungs clear T/O to Auscultation. Patient confirms NPO status and agrees with scheduled surgery. Pre-Op teaching done. Pt verbalizes understanding.
[2020-08-28 16:54] LABS: Hematocrit 25.9 % (37.0-53.0)
[2020-08-28 17:13] LABS: Albumin, Blood 2.5 g/dL (3.4-5.0); Anion Gap 9 mmol/L (6-16); Blood Urea Nitrogen 17 mg/dL (8-24); Bun/Creatinine Ratio 8.5 (12.0-20.0); CO2, Blood 26 mmol/L (21-32); Calcium, Blood 8.7 mg/dL (8.5-10.1); Chloride, Blood 104 mmol/L (98-108); Creatinine, Blood 1.99 mg/dL (0.60-1.20); Glomerular Filtration Rate 37 (60-); Glucose, Blood 82 mg/dL (70-99); Potassium, Blood 2.8 mmol/L (3.5-5.5); Sodium, Blood 139 mmol/L (136-145)
--- NOTE | 2020-08-28 17:25 | NUR ---
08/28/20 1725 SOLANGE COULTER History, Chart, Medications and Allergies reviewed before start of procedure. 3-LEAD EKG REVIEWED WITH PHYSICIAN PRIOR TO START OF PROCEDURE. O2 VIA N/C INTACT THROUGHOUT SEDATION/PROCEDURE. MONITOR INTACT WITH CONTINUOUS PULSE OXIMETRY AND INTERMITTENT BP. MAC WITH DR. SHANNON.
--- NOTE | 2020-08-29 03:48 | NUR ---
SUMMARY PT ARRIVED FROM PROCEDURE AND IN NO DISTRESS. PT HAS BEEN WATCHING TV MOST OF NIGHT. PT HAD NO ISSUES NOTED. PT CURRENTLY SLEEPING AND BREATHING EAST. CALL LIGHT IN REACH.
[2020-08-29 05:14] LABS: BASOPHILS ABSOLUTE AUTO 0.04 K/mm3 (0.00-0.23); BASOPHILS PERCENT AUTO 0 % (0-2); EOSINOPHILS ABSOLUTE AUTO 0.23 K/mm3 (0.00-0.68); EOSINOPHILS PERCENT AUTO 2 % (0-6); Hematocrit 25.7 % (37.0-53.0); Hemoglobin 7.8 g/dL (13.5-17.5); IMMATURE GRAN ABSOLUTE AUTO 0.06 K/mm3 (0.00-0.10); IMMATURE GRAN PERCENT AUTO 1 % (0-1); LYMPHOCYTES ABSOLUTE AUTO 1.31 K/mm3 (0.84-5.20); LYMPHOCYTES PERCENT AUTO 12 % (21-46); MONOCYTES ABSOLUTE AUTO 0.78 K/mm3 (0.16-1.47); MONOCYTES PERCENT AUTO 7 % (4-13); Mean Corpuscular HGB 26.4 pg (26.0-34.0); Mean Corpuscular HGB Conc 30.4 g/dL (31.5-36.5); Mean Corpuscular Volume 87 fL (80-100); Mean Platelet Volume 9.4 fL (9.1-12.4); NEUTROPHILS ABSOLUTE AUTO 8.45 K/mm3 (1.96-9.15); NEUTROPHILS PERCENT AUTO 78 % (41-73); Platelet Count 409 K/mm3 (150-400); RDW Coefficient Variation 16.2 % (11.7-14.2); RDW Standard Deviation 51.3 fL (35.1-46.3); Red Blood Cell Count 2.96 M/mm3 (4.30-5.90); White Blood Cell Count 10.87 K/mm3 (4.00-11.30)
[2020-08-29 05:41] LABS: Bun/Creatinine Ratio 11.3 (12.0-20.0); Calcium, Blood 8.3 mg/dL (8.5-10.1); Creatinine, Blood 1.86 mg/dL (0.60-1.20); Magnesium, Blood 1.8 mg/dL (1.6-2.4); Potassium, Blood 3.2 mmol/L (3.5-5.5)
--- NOTE | 2020-08-29 08:30 | NUR ---
PATIENT HAS 20 GAUGE IV IN R HAND. NOT DOCUMENTED, UNKNOWN DATE OF INSERTION, SITE NOT LABELED. FLUSHES EASILY, NO REDNESS OR TENDERNESS.
--- NOTE | 2020-08-29 12:15 | NUR ---
Pt. in bed resting , hereports to be doing much better, encouaged pt. and prayeed for him.
--- NOTE | 2020-08-29 19:15 | NUR ---
SHIFT SUMMARY: PT C/O SEVERE WEAKNESS TODAY, WAS GETTING UP WITH SBA AND ONLY GOING SHORT DISTANCES. NO EVENTS ON TELEMETRY, SR 70'S. C/O BACK PAIN; MEDICATED PER EMAR. ON ROOM AIR. GOOD APPETITE. FELL AFTER SHOWER, NO APPARENT INJURY, DR. PEREIRA NOTIFIED.
--- NOTE | 2020-08-29 21:44 | NUR ---
1999 PT WEARING YELLOW FALL ALERT GOWN (PT HAD FALL EARLIER IN DAY ON DAYS); PTS ADVISED TO CALL FOR HELP ALL AMBULATION WITH BED ALARM APPLIED; PT DID AMBULATE VIA WALKER X 1 STANDBY ASSIST TO BATHROOM AND BACK.
--- NOTE | 2020-08-30 04:09 | NUR ---
SHIFT SUMMARY: 55 Y/O MALE RESTED COMFORTABLY ALL SHIFT; PT C/O BACK PAIN RATED 8/10 WITH FENTANYL 50MCG IVP GIVEN TWICE WITH PAIN RELIEF FELT; ALERT AND ORIENTED X 4; PT WAS NOTED TO HAVE A FALL DURING DAYSHIFT ON 08/29 WITH PATIENT NOTED TO BE WEARING YELLOW HOSPITAL GOWN AND BED ALARM APPLIED FOR SAFETY; PT DID AMBULATE X 3 VIA WALKER X 1 STANDBY ASSIST WITH GAIT SLOW AND STEADY; BED LOW POSITION WITH CALL LIGHT AT SIDE.
[2020-08-30 05:25] LABS: BASOPHILS ABSOLUTE AUTO 0.04 K/mm3 (0.00-0.23); BASOPHILS PERCENT AUTO 0 % (0-2); EOSINOPHILS ABSOLUTE AUTO 0.36 K/mm3 (0.00-0.68); EOSINOPHILS PERCENT AUTO 4 % (0-6); Hematocrit 25.7 % (37.0-53.0); Hemoglobin 7.7 g/dL (13.5-17.5); IMMATURE GRAN ABSOLUTE AUTO 0.03 K/mm3 (0.00-0.10); IMMATURE GRAN PERCENT AUTO 0 % (0-1); LYMPHOCYTES ABSOLUTE AUTO 2.23 K/mm3 (0.84-5.20); LYMPHOCYTES PERCENT AUTO 23 % (21-46); MONOCYTES ABSOLUTE AUTO 0.93 K/mm3 (0.16-1.47); MONOCYTES PERCENT AUTO 10 % (4-13); Mean Corpuscular HGB 26.3 pg (26.0-34.0); Mean Corpuscular Volume 88 fL (80-100); Mean Platelet Volume 9.4 fL (9.1-12.4); NEUTROPHILS ABSOLUTE AUTO 5.95 K/mm3 (1.96-9.15); NEUTROPHILS PERCENT AUTO 62 % (41-73); Platelet Count 387 K/mm3 (150-400); RDW Coefficient Variation 15.9 % (11.7-14.2); Red Blood Cell Count 2.93 M/mm3 (4.30-5.90); White Blood Cell Count 9.54 K/mm3 (4.00-11.30)
[2020-08-30 05:58] LABS: Albumin, Blood 2.2 g/dL (3.4-5.0); Anion Gap 4 mmol/L (6-16); Blood Urea Nitrogen 26 mg/dL (8-24); Bun/Creatinine Ratio 11.8 (12.0-20.0); CO2, Blood 28 mmol/L (21-32); Calcium, Blood 8.5 mg/dL (8.5-10.1); Chloride, Blood 107 mmol/L (98-108); Creatinine, Blood 2.21 mg/dL (0.60-1.20); Glomerular Filtration Rate 33 (60-); Glucose, Blood 64 mg/dL (70-99); Phosphorus, Blood 4.5 mg/dL (2.5-4.9); Potassium, Blood 3.5 mmol/L (3.5-5.5); Sodium, Blood 139 mmol/L (136-145)
--- NOTE | 2020-08-30 17:53 | NUR ---
SHIFT SUMMARY PATIENT ALERT AND ORIENTED. PATIENT CALLS APPRIATELY. PATIENT DENIES CP THROUGHOUT THIS SHIFT. PATIENT MEDICATED FOR LOWER BACK PAIN. PATIENT 1 ASSIST WITH GAITBELT AND FWW TO THE RESTROOM. PATIENT WORKED WITH PT THIS AM. PATIENT AMBULATED IN THE MORROW WITH RN THIS AFTERNOON. PATIENT STATES THAT HE DOESN'T FEEL HE IS CURRENTLY AT A LEVEL TO RETURN HOME. PATIENT IS CURRENTLY SITTING UP IN BED EATING DINNER.
--- NOTE | 2020-08-30 19:28 | NUR ---
RESTING QUIETLY IN BED AT THIS TIME. NO NOTED DISTRESS. CALL LIGHT IN REACH. FALL PRECAUTIONS IN PLACE. BED ALARM ON. WILL CONT TO MONITOR
--- NOTE | 2020-08-31 05:35 | NUR ---
SHIFT SUMMARY RESTING QUIETLY AT INTERVALS, TALKATIVE WHEN STAFF AT BEDSIDE, UP TO BR WITH 1 PERSON ASSIST AND WALKER TO ESTEFANY A FEW TIMES THIS SHIFT. ANALGESICS GIVEN - SEE MAR FOR DETAILS, VOICED WAS FOR BACK PAIN. CALL LIGHT IN REACH
[2020-08-31 05:43] LABS: BASOPHILS ABSOLUTE AUTO 0.05 K/mm3 (0.00-0.23); BASOPHILS PERCENT AUTO 1 % (0-2); EOSINOPHILS ABSOLUTE AUTO 0.24 K/mm3 (0.00-0.68); EOSINOPHILS PERCENT AUTO 3 % (0-6); Hematocrit 25.9 % (37.0-53.0); Hemoglobin 7.7 g/dL (13.5-17.5); IMMATURE GRAN ABSOLUTE AUTO 0.02 K/mm3 (0.00-0.10); IMMATURE GRAN PERCENT AUTO 0 % (0-1); LYMPHOCYTES ABSOLUTE AUTO 1.74 K/mm3 (0.84-5.20); LYMPHOCYTES PERCENT AUTO 20 % (21-46); MONOCYTES ABSOLUTE AUTO 0.77 K/mm3 (0.16-1.47); MONOCYTES PERCENT AUTO 9 % (4-13); Mean Corpuscular HGB 25.6 pg (26.0-34.0); Mean Corpuscular HGB Conc 29.7 g/dL (31.5-36.5); Mean Corpuscular Volume 86 fL (80-100); Mean Platelet Volume 9.6 fL (9.1-12.4); NEUTROPHILS ABSOLUTE AUTO 5.82 K/mm3 (1.96-9.15); NEUTROPHILS PERCENT AUTO 67 % (41-73); Platelet Count 397 K/mm3 (150-400); RDW Coefficient Variation 15.8 % (11.7-14.2); RDW Standard Deviation 50.5 fL (35.1-46.3); Red Blood Cell Count 3.01 M/mm3 (4.30-5.90); White Blood Cell Count 8.64 K/mm3 (4.00-11.30)
[2020-08-31 06:12] LABS: Albumin, Blood 2.3 g/dL (3.4-5.0); Anion Gap 6 mmol/L (6-16); Blood Urea Nitrogen 30 mg/dL (8-24); Bun/Creatinine Ratio 13.7 (12.0-20.0); CO2, Blood 28 mmol/L (21-32); Calcium, Blood 8.6 mg/dL (8.5-10.1); Chloride, Blood 103 mmol/L (98-108); Creatinine, Blood 2.19 mg/dL (0.60-1.20); Glomerular Filtration Rate 33 (60-); Glucose, Blood 174 mg/dL (70-99); Phosphorus, Blood 4.4 mg/dL (2.5-4.9); Potassium, Blood 3.5 mmol/L (3.5-5.5); Sodium, Blood 137 mmol/L (136-145)
--- NOTE | 2020-08-31 18:10 | NUR ---
SHIFT SUMMARY PATIENT ALERT AND ORIENTED THROUGHOUT THIS SHIFT. PATIENT WORKED WITH PT THIS AM. PATIENT MEDICATED FOR PAIN THROUGHOUT THIS SHIFT. PATIENT REMAINS A 1 PERSON ASSIST TO THE BATHROOM AND FOR WALKS. PATIENT UP IN THE RECLINER THIS AFTERNOON, THEN BACK TO BED FOR A NAP. PATIENT CURRENTLY SITTING UP IN BED EATING DINNER.
--- NOTE | 2020-08-31 19:33 | NUR ---
RESTING QUIETLY. NO NOTED ACUTE DISTRESS. HOB ELEVATED AT 45 DEGREES. CALL LIGHT IN REACH
--- NOTE | 2020-09-01 01:51 | NUR ---
HAS BEEN RESTING QUIETLY WHEN OBSERVED AT [facility], AWAKE AT THIS TIME, VOICED "IM OK" WHEN ASKED HOW HE WAS DOING. CALL LIGHT IN REACH
--- NOTE | 2020-09-01 03:48 | NUR ---
SHIFT SUMMARY AWAKE AT INTERVALS WITH TRIPS TO BATHROOM WITH ASSIST AND WALKER TO VOID. HAS RECEIVED ANALGESICS FOR COMPLAINTS OF BACK PAIN X 2 OR THIS WRITING. CURRENTLY AWAKE. AFFECT CHEERFUL. CALL LIGHT IN REACH. DENIED CHEST PAIN. NO C/O CHEST TIGHTNESS AT THIS TIME. VSS.
[2020-09-01 05:35] LABS: Hematocrit 24.8 % (37.0-53.0); Hemoglobin 7.4 g/dL (13.5-17.5)
[2020-09-01 06:00] LABS: Albumin, Blood 2.3 g/dL (3.4-5.0); Anion Gap 6 mmol/L (6-16); Blood Urea Nitrogen 32 mg/dL (8-24); Bun/Creatinine Ratio 14.8 (12.0-20.0); CO2, Blood 28 mmol/L (21-32); Calcium, Blood 8.4 mg/dL (8.5-10.1); Chloride, Blood 104 mmol/L (98-108); Creatinine, Blood 2.16 mg/dL (0.60-1.20); Glomerular Filtration Rate 34 (60-); Glucose, Blood 131 mg/dL (70-99); Phosphorus, Blood 4.1 mg/dL (2.5-4.9); Potassium, Blood 3.6 mmol/L (3.5-5.5); Sodium, Blood 138 mmol/L (136-145)
--- NOTE | 2020-09-01 10:20 | NUR ---
Pt. is in bed resting after a walk ,he reports to be doing much better encouraged and offered prayers .
--- NOTE | 2020-09-01 15:48 | NUR ---
SHIFT SUMMARY PATIENT HAS POOR BALANCE CONTROL AND WEAKNESS. THIS RN TOOK PT FOR A WALK IN THE MORNING. HE WALKED 110 FEET, CONTACT GUARD ASSIST, REQUIRING STEADYING ASSIST, STAGGERING GAIT AT TIMES. COMPLAINED OF SCROTAL PAIN, PUSTULE PRESENT, OPEN, NO DRAINAGE. INTERMITTENT CHEST TIGHTNESS PRESENT AND HGB TRENDING DOWN. HGB 7.7 YESTERDAY AND 7.4 TODAY, 09/01/20. EKG TODAY SHOWS SINUS BRADYCARDIA. DR. COLEMAN NOTIFIED OF ALL OF THE ABOVE. ORDERS FOR NEOSPORIN AND WARM COMPRESSES TO SCROTUM. DISCUSSED SNF, PENDING P.T. RECS. PT AND MD AGREEABLE TO SNF PLACEMENT,IF QUALIFIES.
--- NOTE | 2020-09-01 21:42 | NUR ---
TIRED, ASSISTED TO BED EARLY AT HS. ACCU CHECK 244, INSULIN ADMIN - SEE NOV FOR DETAILS. DENIED CHEST PAIN, STATED CHEST PRESSURE CONTINUES, REMAINING THE SAME EARLIER ON DAY SHIFT (AM RN AWARE, STATED MD WAS NOTIFIED, EKG DONE THEN- SEE SAID RESULTS). RESPS EVEN. HS MEDS GIVEN. HR BRADYCARDIA IN THE 50'S. CALL LIGHT IN REACH
--- NOTE | 2020-09-02 04:37 | NUR ---
SHIFT SUMMARY RESTING QUIETLY AT INTERVALS. BP ELEVATED SEE MAR FOR ANTIHYPERTENSIVES ADMINISTERED. CALL LIGHT IN REACH. DENIED CHEST PAIN THIS SHIFT, SOME TIGHTNESS CONTINUES.
[2020-09-02 06:15] LABS: BASOPHILS ABSOLUTE AUTO 0.07 K/mm3 (0.00-0.23); BASOPHILS PERCENT AUTO 1 % (0-2); EOSINOPHILS ABSOLUTE AUTO 0.32 K/mm3 (0.00-0.68); EOSINOPHILS PERCENT AUTO 3 % (0-6); Hematocrit 25.7 % (37.0-53.0); Hemoglobin 7.7 g/dL (13.5-17.5); IMMATURE GRAN ABSOLUTE AUTO 0.04 K/mm3 (0.00-0.10); IMMATURE GRAN PERCENT AUTO 0 % (0-1); LYMPHOCYTES ABSOLUTE AUTO 1.85 K/mm3 (0.84-5.20); LYMPHOCYTES PERCENT AUTO 19 % (21-46); MONOCYTES ABSOLUTE AUTO 0.84 K/mm3 (0.16-1.47); MONOCYTES PERCENT AUTO 8 % (4-13); Mean Corpuscular HGB 25.8 pg (26.0-34.0); Mean Corpuscular Volume 86 fL (80-100); NEUTROPHILS ABSOLUTE AUTO 6.83 K/mm3 (1.96-9.15); NEUTROPHILS PERCENT AUTO 69 % (41-73); Platelet Count 400 K/mm3 (150-400); RDW Coefficient Variation 15.9 % (11.7-14.2); RDW Standard Deviation 50.8 fL (35.1-46.3); Red Blood Cell Count 2.98 M/mm3 (4.30-5.90); White Blood Cell Count 9.95 K/mm3 (4.00-11.30)
[2020-09-02 06:37] LABS: Albumin, Blood 2.3 g/dL (3.4-5.0); Anion Gap 7 mmol/L (6-16); Blood Urea Nitrogen 32 mg/dL (8-24); Bun/Creatinine Ratio 14.2 (12.0-20.0); CO2, Blood 25 mmol/L (21-32); Calcium, Blood 8.5 mg/dL (8.5-10.1); Chloride, Blood 105 mmol/L (98-108); Creatinine, Blood 2.25 mg/dL (0.60-1.20); Glomerular Filtration Rate 32 (60-); Glucose, Blood 141 mg/dL (70-99); Phosphorus, Blood 4.3 mg/dL (2.5-4.9); Potassium, Blood 3.8 mmol/L (3.5-5.5); Sodium, Blood 137 mmol/L (136-145)
[2020-09-02] MEDS ORDERED: FERSU300 PO (10:59)
[2020-09-02] MEDS ORDERED: PANT40 PO (11:00)
[2020-09-02] MEDS ORDERED: SENN187 PO (11:00)
--- NOTE | 2020-09-02 12:12 | NUR ---
DISCHARGED HOME. VERBALIZED UNDERSTANDING OF THE DISCHARGE INSTRUCTIONS. HOME MEDICATIONS THAT WERE STORED IN PHARMACY WERE SENT HOME WITH PATIENT, ALONG WITH ALL OTHER BELONGINGS. ALL OF THIS QUESTIONS WERE ANSWERED AND HE VERBALIZED UNDERSTANDING OF THE DISCHARGE INSTRUCTIONS.
--- NOTE | 2020-09-02 14:59 | NUR ---
Pt. is doing much better and is discharged for good wished pt wellat home
== END 2020-09-02 12:10 | disposition home or self-care (01) | DRG 377 ==
LOC: ER 10:59 → PCU 17:03 → MEDS 08-28 14:12
PROVIDERS: Emergency Medicine; Internal Medicine; Internal Medicine Gastroenterology; Nurse Practitioner Acute Care; ADMIT Hospitalist
PROC: 0DBL8ZZ Excision of Transverse Colon, Via Natural or Artificial Opening Endoscopic (ICD-10-PCS; 2020-08-28)
PROC: 0DBN8ZZ Excision of Sigmoid Colon, Via Natural or Artificial Opening Endoscopic (ICD-10-PCS; 2020-08-28)
PROC: 0DBP8ZZ Excision of Rectum, Via Natural or Artificial Opening Endoscopic (ICD-10-PCS; 2020-08-28)
PROC: 0DBM8ZZ Excision of Descending Colon, Via Natural or Artificial Opening Endoscopic (ICD-10-PCS; 2020-08-28)
PROC: 30233N1 Transfusion of Nonautologous Red Blood Cells into Peripheral Vein, Percutaneous Approach (ICD-10-PCS; principal; 2020-08-28 07:30)
PROC: 0DB98ZX Excision of Duodenum, Via Natural or Artificial Opening Endoscopic, Diagnostic (ICD-10-PCS; 2020-08-28 07:30)
PROC: 0DBK8ZZ Excision of Ascending Colon, Via Natural or Artificial Opening Endoscopic (ICD-10-PCS; 2020-08-28 07:30)
DX: K26.4 Chronic or unspecified duodenal ulcer with hemorrhage (principal); I21.A1 Myocardial infarction type 2; D62 Acute posthemorrhagic anemia; I50.32 Chronic diastolic (congestive) heart failure; I13.0 Hypertensive heart and chronic kidney disease with heart failure and stage 1 through stage 4 chronic kidney disease, or unspecified chronic kidney disease; N17.9 Acute kidney failure, unspecified; N18.4 Chronic kidney disease, stage 4 (severe); I47.2 Ventricular tachycardia; I42.8 Other cardiomyopathies; K25.4 Chronic or unspecified gastric ulcer with hemorrhage; Z79.4 Long term (current) use of insulin; Z79.82 Long term (current) use of aspirin; Z79.01 Long term (current) use of anticoagulants; J44.9 Chronic obstructive pulmonary disease, unspecified; I25.10 Atherosclerotic heart disease of native coronary artery without angina pectoris; E78.5 Hyperlipidemia, unspecified; F17.210 Nicotine dependence, cigarettes, uncomplicated; G43.909 Migraine, unspecified, not intractable, without status migrainosus; E11.22 Type 2 diabetes mellitus with diabetic chronic kidney disease; L05.91 Pilonidal cyst without abscess; Z20.828 Contact with and (suspected) exposure to other viral communicable diseases; K62.89 Other specified diseases of anus and rectum; K57.30 Diverticulosis of large intestine without perforation or abscess without bleeding; E87.6 Hypokalemia; Z86.73 Personal history of transient ischemic attack (TIA), and cerebral infarction without residual deficits; W18.2XXA Fall in (into) shower or empty bathtub, initial encounter; Y92.231 Patient bathroom in hospital as the place of occurrence of the external cause; E11.40 Type 2 diabetes mellitus with diabetic neuropathy, unspecified; D50.9 Iron deficiency anemia, unspecified; L73.2 Hidradenitis suppurativa; B35.1 Tinea unguium; N40.0 Benign prostatic hyperplasia without lower urinary tract symptoms
CPT/HCPCS: 0241U; 36415; 36430; 71045; 80048; 80053; 80069; 82728; 82947; 83540; 83550; 83735; 83880; 84484; 85014; 85018; 85025; 86850; 86900; 86901; 86923; 88305; 88342; 93005; 93010; 96361; 96374; 96375; 96376; 97110; 97116; 97162; 97530; 99285-25; A9270; A9270-GY; C9113; G0378; J1885; J1940; J2405; J2704; J3010; J7030; J7120; J7799; P9016

== ENCOUNTER 2021-01-10 09:24 | Inpatient (IN) | payer OTHER ==
[~2021-01-10] VITALS: Ht 177.8 cm; Wt 106.3 kg
[~2021-01-10 09:24] MED LIST changes: +AMLO5 PO; +ATOR80 PO; +Aspir 8181 MG PO; +BASAGLAR K100 UNIT/6 SC; +BUPR150ER PO; +BUTALB-ACETAMI1 EAC7 PO; +Bisoprolol Fuma10 MG PO; +CLON.1 PO; +Doxycycline Mo100 M1 PO; +FERSU300 PO; +FURO20 PO; +GABA300 PO; +HUMALOG100 UNIT/1 SC; +METF500C PO; +PANT40 PO; +POTA10T PO; +TAMS.4ER PO; +TERB250 PO; +XARELTO15 MG PO
[2021-01-10 09:47] LABS: BASOPHILS ABSOLUTE AUTO 0.09 K/mm3 (0.00-0.23); BASOPHILS PERCENT AUTO 1 % (0-2); EOSINOPHILS ABSOLUTE AUTO 0.47 K/mm3 (0.00-0.68); EOSINOPHILS PERCENT AUTO 2 % (0-6); Hemoglobin 9.1 g/dL (13.5-17.5); IMMATURE GRAN ABSOLUTE AUTO 0.35 K/mm3 (0.00-0.10); IMMATURE GRAN PERCENT AUTO 2 % (0-1); LYMPHOCYTES ABSOLUTE AUTO 3.33 K/mm3 (0.84-5.20); LYMPHOCYTES PERCENT AUTO 17 % (21-46); MONOCYTES ABSOLUTE AUTO 1.12 K/mm3 (0.16-1.47); MONOCYTES PERCENT AUTO 6 % (4-13); Mean Corpuscular HGB 25.7 pg (26.0-34.0); Mean Corpuscular HGB Conc 29.4 g/dL (31.5-36.5); Mean Corpuscular Volume 88 fL (80-100); Mean Platelet Volume 10.1 fL (9.1-12.4); NEUTROPHILS ABSOLUTE AUTO 14.23 K/mm3 (1.96-9.15); NEUTROPHILS PERCENT AUTO 73 % (41-73); NRBC ABSOLUTE 0.03 K/mm3 (0.00-0.02); NRBC Auto 0.2 /100 WBC (0.0-0.2); Platelet Count 472 K/mm3 (150-400); RDW Coefficient Variation 19.6 % (11.7-14.2); RDW Standard Deviation 60.5 fL (35.1-46.3); Red Blood Cell Count 3.54 M/mm3 (4.30-5.90); White Blood Cell Count 19.59 K/mm3 (4.00-11.30)
[2021-01-10 10:11] LABS: Albumin, Blood 2.5 g/dL (3.4-5.0); Albumin/Globulin Ratio 0.5 (0.8-1.8); Bilirubin, Total 0.1 mg/dL (0.1-1.0); Bun/Creatinine Ratio 15.2 (12.0-20.0); Calcium, Blood 7.7 mg/dL (8.5-10.1); Creatinine, Blood 2.04 mg/dL (0.60-1.20); Globulin, Blood 4.6 g/dL (2.2-4.0); Potassium, Blood 4.2 mmol/L (3.5-5.5); Total Protein, Blood 7.1 g/dL (6.4-8.2); Troponin I 0.167 ng/mL (0.000-0.040)
--- NOTE | 2021-01-10 14:29 | NUR ---
Echocardiogram completed.
--- NOTE | 2021-01-10 16:23 | NUR ---
PHYSICIAN UPDATED PHYSICIAN INFORMED OF PT'S HIGH CBG. INSULIN PER SLIDING SCALE. CBG TO BE DONE AT 2100. NOC NURSE TO CONTACT PHYSICIAN IF HIGH.
--- NOTE | 2021-01-10 18:17 | NUR ---
SHIFT SUMMARY PT ARRIVED TO UNIT FROM ED DURING SHIFT. OXYGEN SATURATION MAINTAINED ABOVE 92% ON AIRVO AT 40%. HR STABLE. BP STABLE. NO CP OR PRESSURE REPORTED. PHYSICIAN NOTIFIED REGARDING HYPERGLYCEMIA, SEE NOTES. CBG TO BE CHECKED AT 2200. PALLIATIVE CARE CONSULT CALLED IN, MESSAGE LEFT. PT SBA WITH WALKER. PT ABLE TO TURN SELF IN BED NEEDED FOR COMFORT. WILL CONTINUE TO MONITOR UNTIL REPORT GIVEN TO NIGHTSHIFT RN.
--- NOTE | 2021-01-10 19:28 | NUR ---
UPDATE ASSESSED PT'S CP AFTER TROPONIN LEVEL INCREASE. PT REPORTS NO CHEST PAIN, BUT REPORTS CHEST TIGHTNESS. PHYSICIAN UPDATED ON INCREASE IN TROPONIN LEVEL. PHYSICIAN ORDERED TO HAVE PT NPO AT THIS TIME. PHYSICIAN NOTIFIED OF PT'S CHEST TIGHTNESS.
[2021-01-10 20:32] LABS: International Normalized Ratio 1.07; Prothrombin Time Results 11.5 Sec (9.7-11.5)
[2021-01-11 04:24] LABS: BASOPHILS ABSOLUTE AUTO 0.04 K/mm3 (0.00-0.23); BASOPHILS PERCENT AUTO 0 % (0-2); EOSINOPHILS ABSOLUTE AUTO 0.28 K/mm3 (0.00-0.68); EOSINOPHILS PERCENT AUTO 2 % (0-6); Hematocrit 24.8 % (37.0-53.0); Hemoglobin 7.3 g/dL (13.5-17.5); IMMATURE GRAN ABSOLUTE AUTO 0.06 K/mm3 (0.00-0.10); IMMATURE GRAN PERCENT AUTO 1 % (0-1); LYMPHOCYTES ABSOLUTE AUTO 1.65 K/mm3 (0.84-5.20); LYMPHOCYTES PERCENT AUTO 14 % (21-46); MONOCYTES ABSOLUTE AUTO 0.83 K/mm3 (0.16-1.47); MONOCYTES PERCENT AUTO 7 % (4-13); Mean Corpuscular HGB 25.5 pg (26.0-34.0); Mean Corpuscular HGB Conc 29.4 g/dL (31.5-36.5); Mean Corpuscular Volume 87 fL (80-100); Mean Platelet Volume 10.1 fL (9.1-12.4); NEUTROPHILS ABSOLUTE AUTO 8.85 K/mm3 (1.96-9.15); NEUTROPHILS PERCENT AUTO 76 % (41-73); Platelet Count 314 K/mm3 (150-400); RDW Coefficient Variation 19.7 % (11.7-14.2); RDW Standard Deviation 59.9 fL (35.1-46.3); Red Blood Cell Count 2.86 M/mm3 (4.30-5.90); White Blood Cell Count 11.71 K/mm3 (4.00-11.30)
[2021-01-11 04:44] LABS: Bun/Creatinine Ratio 12.2 (12.0-20.0); Calcium, Blood 7.9 mg/dL (8.5-10.1); Creatinine, Blood 2.21 mg/dL (0.60-1.20); Potassium, Blood 3.9 mmol/L (3.5-5.5)
--- NOTE | 2021-01-11 06:37 | NUR ---
SHIFT SUMMARY PATIENT IS ALERT AND ORIENTED X4. REPOSITIONS SELF IN BED. SBA WITH FWW TO BEDSIDE COMMODE. MEDICATED PER EMAR FOR CHEST TIGHTNESS. 02 SATS 98% ON AIRVO FIO2 40%. SOB WITH EXERTION. PATIENT COMPLAINING OF GENERALIZED WEAKNESS. CALLED HOSPITALIST DUE TO PATIENTS Hgb OF 7.3 AND PATIENT BEING ON HEPARIN, ORDERS TO REDRAW H&H @0830. CALLED DR. NEWSOME ABOUT THE Hgb AND ORDERS TO STOP HEPARIN. VSS, NO ACUTE CHANGES. CALL LIGHT IN REACH.
[2021-01-11 08:29] LABS: Hemoglobin 7.3 g/dL (13.5-17.5)
--- NOTE | 2021-01-11 10:00 | NUR ---
UPDATE PHYSICIAN AT [facility] THIS AM. INCREASE DIET TO ADA DIET. TROPONIN LABS STILL DC'D AT THIS TIME PER PHYSICIAN. NO NEW ORDERS AT THIS TIME. WILL CONTINUE TO MONITOR.
[2021-01-11 16:05] LABS: Hematocrit 26.5 % (37.0-53.0)
--- NOTE | 2021-01-11 18:10 | NUR ---
SHIFT SUMMARY PT ALERT AND ORIENTED X 4. HR STABLE. BP STABLE. NO CP OR PRESSURE REPORTED. PT REPORTS SOME WEAKNESS AND TINGLING TO LEFT ARM. HE REPORTS THIS IS CHRONIC AND HAS BEEN HAPPENING SINCE HIS PRIOR STROKE 1 YEAR AGO. OXYGEN SATURATION MAINTAINED ABOVE 92% ON RA. PT ABLE TO TURN SELF IN BED. WILL CONTINUE TO MONITOR UNTIL REPORT GIVEN TO NIGHTSHIFT RN.
--- NOTE | 2021-01-11 18:21 | NUR ---
UPDATE PHYSICIAN NOTIFIED OF PT'S REQUEST FOR PAIN MEDICATION FOR MIGRAINE. MEDICATION ORDERED PER PHYSICIAN, SEE EMAR.
--- NOTE | 2021-01-12 02:50 | NUR ---
SHIFT SUMMARY PATIENT ASSESSED AT SHIFT CHANGE AND FOUND TO BE A&OX4, FOLLOWING COMMANDS, WITH SOME BASELINE R SIDED WEAKNESS FROM PREVIOUS STROKE.VSS.PATIENT NSR ON THE MONITOR WITH NO CP NOTED. ON RA SATING IN MID 90'S. INCENTIVE SPIROMETER GIVEN AND EDUCATED ON. FEELS HE STILL CANT TAKE DEEP BREATH SO ENCOURAGING IS USE. FIROCET GIVEN FOR CHRONIC MIGRAINE RELIEF. VOIDING WELL PER URINAL. BLOOD GLUCOSE AND APPETITE WNL. NO ACUTE CONCERNS AT THIS TIME. WILL CONTINUE TO MONITOR.
[2021-01-12 03:54] LABS: BASOPHILS ABSOLUTE AUTO 0.04 K/mm3 (0.00-0.23); BASOPHILS PERCENT AUTO 0 % (0-2); EOSINOPHILS PERCENT AUTO 3 % (0-6); Hematocrit 24.7 % (37.0-53.0); Hemoglobin 7.4 g/dL (13.5-17.5); IMMATURE GRAN ABSOLUTE AUTO 0.05 K/mm3 (0.00-0.10); IMMATURE GRAN PERCENT AUTO 0 % (0-1); LYMPHOCYTES ABSOLUTE AUTO 1.68 K/mm3 (0.84-5.20); LYMPHOCYTES PERCENT AUTO 14 % (21-46); MONOCYTES ABSOLUTE AUTO 0.96 K/mm3 (0.16-1.47); MONOCYTES PERCENT AUTO 8 % (4-13); Mean Corpuscular HGB 26.1 pg (26.0-34.0); Mean Corpuscular Volume 87 fL (80-100); Mean Platelet Volume 10.1 fL (9.1-12.4); NEUTROPHILS ABSOLUTE AUTO 8.79 K/mm3 (1.96-9.15); NEUTROPHILS PERCENT AUTO 74 % (41-73); Platelet Count 316 K/mm3 (150-400); RDW Coefficient Variation 19.6 % (11.7-14.2); Red Blood Cell Count 2.84 M/mm3 (4.30-5.90); White Blood Cell Count 11.92 K/mm3 (4.00-11.30)
[2021-01-12 04:11] LABS: Bun/Creatinine Ratio 11.3 (12.0-20.0); Calcium, Blood 7.9 mg/dL (8.5-10.1); Creatinine, Blood 2.22 mg/dL (0.60-1.20); Potassium, Blood 3.9 mmol/L (3.5-5.5)
--- NOTE | 2021-01-12 11:30 | NUR ---
Initial palliative care consult: Raúl is a 55 year old gentleman with a history of migraines, HTN, DM, CAD, GERD, hyperlipidamia, COPD, CVA x 3, BPH, diabetic neuropathy, gastric ulcers with GIB, sleep apnea. He was admitted on 01/10/21 for possible pneumonia. Raúl lives alone. His mother who lived with him in early October of this year after a very short pettit with lung cancer. He reports that he has no family here. He has a fiance in [place] who moved there to care for her daughter. He states that he hopes to move to [place] to be near her. He states that finacially that she isn't able to come out here to help care for him. He is worried that he won't be able to afford his rental payments much longer. Raúl has a neighbor who is currently watching after his chocolate lab. He states that the neighbor checks in on him almost daily. Raúl reports that since his CVAs that he will "Just fall without any warning." He has a walker that he doesn't use because it's in the way and he will fall on it and injure himself. He reports daily falls, weakness, very poor activity intolerance and poor memory and difficulty finding words. 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 He appears quite distraught that his health is now so compromised. 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 Once he became an insulin dependent diabetic he lost his job, home and vehicles. This is very depressing to him. He lives alone, currently rents, has an income from [employer] of $795/month and has difficulty managing his daily activities. He reports he grocery shops with SNAP benefits once a month and that this process is very difficult for him. He states that he barely is able to get the refrigerated and frozen items into his house due to poor activity intolerance. He reports that the rest of the groceries stay in his trunk unitl he can get them into the house. He cooks, however this takes a lot of energy. He is unable to clean his house due to his poor activity intolerance. He states that laundry is a challenge and that he still has his mother's dirty laundry mixed with his laundry. He reports that he is a but isn't in the [facility] system because he tells this radio news writer that there are other veterans who need the help more than he does. He doesn't believe he has a medical case worker with [facility]. Will plan to speak with CM RN for arranging some assistance for pt when he goes home. He has a current POLST on file which is for a full code. He states he is overwhelmed by all of the things he needs to do and he appears to still be in the grieving process over the of his mother. PC will assist with advanced care planning, symptom managment and therapeutic visits.
--- NOTE | 2021-01-12 17:16 | NUR ---
SHIFT SUMMARY: PT CONTINUES A&OX4, RESP EVEN AND UNLABORED ON RA WITH OCCASIONAL C/O DIFFICULTY GETTING DEEP BREATH, PT USING INCENTIVE SPIROMETER IN ROOM, SR ON MONITOR, TELE HAS BEEN DC'D. PT CONTINUES TO REQUEST PRN FIORICET OFTEN FOR MIGRAINES, STATES HE HAS 10 MORE DAYS UNTIL HIS NEXT DOSE OF BOTOX FOR MIGRAINE MANAGEMENT. PHYSICAL THERAPY WORKED WITH PT TODAY, RECOMMENDING FWW AND SBA WHEN PT GETS UP. WILL CONTINUE TO MONITOR AND TREAT ACCORDINGLY UNTIL CHANGE OF SHIFT.
[2021-01-13 04:31] LABS: BASOPHILS ABSOLUTE AUTO 0.04 K/mm3 (0.00-0.23); BASOPHILS PERCENT AUTO 0 % (0-2); EOSINOPHILS ABSOLUTE AUTO 0.33 K/mm3 (0.00-0.68); EOSINOPHILS PERCENT AUTO 3 % (0-6); Hematocrit 25.2 % (37.0-53.0); Hemoglobin 7.8 g/dL (13.5-17.5); IMMATURE GRAN ABSOLUTE AUTO 0.03 K/mm3 (0.00-0.10); IMMATURE GRAN PERCENT AUTO 0 % (0-1); LYMPHOCYTES ABSOLUTE AUTO 1.59 K/mm3 (0.84-5.20); LYMPHOCYTES PERCENT AUTO 15 % (21-46); MONOCYTES ABSOLUTE AUTO 0.88 K/mm3 (0.16-1.47); MONOCYTES PERCENT AUTO 9 % (4-13); Mean Corpuscular HGB 26.5 pg (26.0-34.0); Mean Corpuscular Volume 86 fL (80-100); Mean Platelet Volume 10.3 fL (9.1-12.4); NEUTROPHILS ABSOLUTE AUTO 7.53 K/mm3 (1.96-9.15); NEUTROPHILS PERCENT AUTO 72 % (41-73); Platelet Count 331 K/mm3 (150-400); RDW Coefficient Variation 19.1 % (11.7-14.2); RDW Standard Deviation 59.3 fL (35.1-46.3); Red Blood Cell Count 2.94 M/mm3 (4.30-5.90)
[2021-01-13 04:47] LABS: Bun/Creatinine Ratio 11.3 (12.0-20.0); Calcium, Blood 8.2 mg/dL (8.5-10.1); Creatinine, Blood 2.13 mg/dL (0.60-1.20); Potassium, Blood 3.8 mmol/L (3.5-5.5)
--- NOTE | 2021-01-13 05:02 | NUR ---
SHIFT SUMMARY PATIENT PLEASANT, A&OX4, ANF FOLLOWING COMMANDS. FORGETFUL AT TIMES.
--- NOTE | 2021-01-13 13:39 | NUR ---
Met pt. in bed relaxed and resting e reports to be doing much better , encouraged pt. and prayed for him.
--- NOTE | 2021-01-13 19:09 | NUR ---
SHIFT SUMMARY: PT A&OX4 T/OUT SHIFT, RESP EVEN AND UNLABORED ON RA, PT STATES SOME IMPROVEMENT OF ABILITY TO GET DEEP BREATH, HRR. AT APPROX 0900 THIS AM PT SUFFERED UNWITNESSED FALL WHILE AMBULATING INDEPENDENTLY WITH FWW. PT HAD BEEN ASSISTED TO RESTROOM, INSTRUCTED TO PULL CORD IN RESTROOM WHEN FINISHED, BUT FAILED TO DO SO. PT STATED HE FELT LIKE HE COULD MAKE IT BACK BY HIMSELF, DENIES SYNCOPE OR HEAD INJURY, STATED MILD DISCOMFORT TO RT SHOULDER THAT HAS RESOLVED. IRIS FILLED OUT AND SUBMITTED. T/OUT THE REST OF SHIFT PT USING CALL LIGHT APPROPRIATELY AND UP WITH SBA. REPORT HAS BEEN GIVEN TO VANCE DAVIES TO ASSUME CARE OF PT.
--- NOTE | 2021-01-14 04:19 | NUR ---
SHIFT SUMMARY PT TRANSFERED FROM [facility] EARLY THIS EVENING. REMAINED ON RA. DENIES SOB. DENIES CP. PT DID COMPLAIN OF A HEADACHE, REPORTING THAT THIS IS CHRONIC AND THAT HE RECIEVES BOTOX TX FOR IT AND IS ALMOST DUE FOR HIS NEXT ONE. MEDICATED PER EMAR. PT HAD SOME DIFFICULTY FALLING ASLEEP BUT APPEARED TO SLEEP WELL AFTER. BED ALARM HAS BEEN ON FOR SAFETY. PT CALLED APPROPRIATELY THIS EVENING. 1 ASSIST W/ GAIT BELT AND FWW TO THE RESTROOM. PT WITH SOME HTN THAT HAS BEEN ONGOING. OTHERWISE VSS AND PT HAD AN UNEVENTFUL NIGHT. WILL CONTINUE TO MONITOR.
[2021-01-14 05:30] LABS: Hematocrit 25.9 % (37.0-53.0)
[2021-01-14 05:54] LABS: Bun/Creatinine Ratio 12.9 (12.0-20.0); Calcium, Blood 8.4 mg/dL (8.5-10.1); Creatinine, Blood 2.09 mg/dL (0.60-1.20); Magnesium, Blood 2.6 mg/dL (1.6-2.4); Potassium, Blood 3.5 mmol/L (3.5-5.5)
--- NOTE | 2021-01-14 08:05 | NUR ---
BSR RECEIVED FROM NOC SHIFT, MEDICATED FOR VINES WILL HAVE TO WAIT FOR TIME
[2021-01-14] MEDS ORDERED: METO25ER PO (15:56)
[2021-01-14] MEDS ORDERED: Aspir 8181 MG PO (15:57)
[2021-01-14] MEDS ORDERED: CLOP75 PO (15:58)
[2021-01-14] MEDS ORDERED: HYDRA25 (15:58)
[2021-01-14] MEDS ORDERED: Isosorbide Mono30 MG PO (16:02)
[2021-01-14] MEDS ORDERED: METO5 PO (16:03)
[2021-01-14] MEDS ORDERED: TRAM50 PO (16:04)
[2021-01-14] MEDS ORDERED: VISBIOME 112.51 EACH PO (16:05)
[2021-01-14] MEDS ORDERED: CEFP200 PO (16:06)
--- NOTE | 2021-01-14 17:38 | NUR ---
discharged to home with a friend, reviewed medications, discharged instructions, follow up appointments, and life changes, REMOVED iv with no trouble, left with a volunteer pushing him in a wc and his friend walking along side
== END 2021-01-14 16:39 | disposition home or self-care (01) | DRG 280 ==
LOC: ER 09:24 → ERHOLD 11:21 → PCU 11:21 → MEDS 01-13 20:07
PROVIDERS: Emergency Medicine; Family Medicine; Internal Medicine; Pharmacist; ADMIT Internal Medicine
PROC: 5A09457 Assistance with Respiratory Ventilation, 24-96 Consecutive Hours, Continuous Positive Airway Pressure (ICD-10-PCS; principal; 2021-01-10)
DX: I13.0 Hypertensive heart and chronic kidney disease with heart failure and stage 1 through stage 4 chronic kidney disease, or unspecified chronic kidney disease (principal); J18.9 Pneumonia, unspecified organism; I21.4 Non-ST elevation (NSTEMI) myocardial infarction; I50.33 Acute on chronic diastolic (congestive) heart failure; J96.01 Acute respiratory failure with hypoxia; J44.1 Chronic obstructive pulmonary disease with (acute) exacerbation; J44.0 Chronic obstructive pulmonary disease with (acute) lower respiratory infection; F17.210 Nicotine dependence, cigarettes, uncomplicated; Z51.5 Encounter for palliative care; R29.6 Repeated falls; N18.30 Chronic kidney disease, stage 3 unspecified; D63.1 Anemia in chronic kidney disease; E11.22 Type 2 diabetes mellitus with diabetic chronic kidney disease; I25.10 Atherosclerotic heart disease of native coronary artery without angina pectoris; N40.0 Benign prostatic hyperplasia without lower urinary tract symptoms; G43.909 Migraine, unspecified, not intractable, without status migrainosus; K21.9 Gastro-esophageal reflux disease without esophagitis; E11.40 Type 2 diabetes mellitus with diabetic neuropathy, unspecified; Z86.73 Personal history of transient ischemic attack (TIA), and cerebral infarction without residual deficits; Z95.5 Presence of coronary angioplasty implant and graft; Z98.890 Other specified postprocedural states; Z79.4 Long term (current) use of insulin; Z79.82 Long term (current) use of aspirin; Z79.899 Other long term (current) drug therapy; Z88.2 Allergy status to sulfonamides; Z71.6 Tobacco abuse counseling
CPT/HCPCS: 36415; 71045; 80048; 80053; 82947; 83036; 83605; 83735; 83880; 84145; 84484; 85014; 85018; 85025; 85610; 85730; 93005; 93010; 94644; 94660; 94762; 97110; 97162; 97165; 97535; 99285-25; A9270; A9270-GY; C8923; J0456; J0696; J1644; J1815; J1940; J7050; Q9957

== ENCOUNTER 2021-02-05 18:19 | Inpatient (IN) | payer OTHER ==
[~2021-02-05] VITALS: Ht 177.8 cm; Wt 98.7 kg
[~2021-02-05 18:19] MED LIST changes: +CEFP200 PO; +Isosorbide Mono60 MG PO; +METO5 PO; +TRAM50 PO; +VISBIOME 112.51 EACH PO
[2021-02-05 18:49] LABS: BASOPHILS ABSOLUTE AUTO 0.02 K/mm3 (0.00-0.23); BASOPHILS PERCENT AUTO 0 % (0-2); EOSINOPHILS ABSOLUTE AUTO 0.14 K/mm3 (0.00-0.68); EOSINOPHILS PERCENT AUTO 1 % (0-6); Hematocrit 18.9 % (37.0-53.0); IMMATURE GRAN ABSOLUTE AUTO 0.05 K/mm3 (0.00-0.10); IMMATURE GRAN PERCENT AUTO 0 % (0-1); LYMPHOCYTES ABSOLUTE AUTO 1.45 K/mm3 (0.84-5.20); LYMPHOCYTES PERCENT AUTO 13 % (21-46); MONOCYTES ABSOLUTE AUTO 0.83 K/mm3 (0.16-1.47); MONOCYTES PERCENT AUTO 7 % (4-13); Mean Corpuscular HGB 26.5 pg (26.0-34.0); Mean Corpuscular HGB Conc 29.6 g/dL (31.5-36.5); Mean Corpuscular Volume 90 fL (80-100); Mean Platelet Volume 10.2 fL (9.1-12.4); NEUTROPHILS ABSOLUTE AUTO 9.03 K/mm3 (1.96-9.15); NEUTROPHILS PERCENT AUTO 78 % (41-73); Platelet Count 338 K/mm3 (150-400); RDW Coefficient Variation 19.8 % (11.7-14.2); RDW Standard Deviation 63.7 fL (35.1-46.3); Red Blood Cell Count 2.11 M/mm3 (4.30-5.90); White Blood Cell Count 11.52 K/mm3 (4.00-11.30)
[2021-02-05 18:52] LABS: Hemoglobin 5.6 g/dL (13.5-17.5)
[2021-02-05 19:12] LABS: Albumin, Blood 2.5 g/dL (3.4-5.0); Albumin/Globulin Ratio 0.7 (0.8-1.8); Bilirubin, Total 0.2 mg/dL (0.1-1.0); Calcium, Blood 8.5 mg/dL (8.5-10.1); Creatinine, Blood 2.89 mg/dL (0.60-1.20); Globulin, Blood 3.8 g/dL (2.2-4.0); Potassium, Blood 3.1 mmol/L (3.5-5.5); Total Protein, Blood 6.3 g/dL (6.4-8.2); Troponin I 0.089 ng/mL (0.000-0.040)
[2021-02-05] MEDS ORDERED: METF500C PO (19:17)
[2021-02-05] MEDS ORDERED: Bisoprolol Fuma10 MG PO (19:18)
[2021-02-05] MEDS ORDERED: XARELTO20 MG PO (19:19)
[2021-02-05] MEDS ORDERED: BUPR150ER PO (19:20)
[2021-02-05] MEDS ORDERED: TOPI50 PO ×2 (19:22→21:15)
[2021-02-05] MEDS ORDERED: ESCI10 PO (19:23)
[2021-02-05] MEDS ORDERED: FURO20 PO (19:27)
[2021-02-05 19:30] LABS: Percent Saturation 14.7 % (20.0-50.0)
[2021-02-05] MEDS ORDERED: CLOP75 PO (21:15)
--- NOTE | 2021-02-06 04:21 | NUR ---
SHIFT SUMMARY: PT ADMITTED TO MEDICAL FLOOR [facility]. AAOX4. SOME DIFFICULTY FINDING WORDS. PT STATES THIS IS BASELINE RESIDUAL FROM HISTORICAL CVA. REPORTS PAIN ON "ENTIRE R SIDE" FROM MANY RECENT FALLS. PRN FENTANYL ADMINISTERED. 2ND UNIT OF PRBC ADMINISTERED UPON ARRIVAL TO UNIT. IV PROTONIX CONTINUOUSLY PER ORDERS. GENERALIZED WEAKNESS. PT AGREES TO CALL FOR ASSISTANCE W/ AMBULATION. DEVON FULL LIQUID DIET WELL. ABD SOFT, TENDER THROUGHOUT W/ PALPATION. NO STOOLS TONIGHT. WCTM.
[2021-02-06 04:56] LABS: BASOPHILS ABSOLUTE AUTO 0.03 K/mm3 (0.00-0.23); BASOPHILS PERCENT AUTO 0 % (0-2); EOSINOPHILS ABSOLUTE AUTO 0.27 K/mm3 (0.00-0.68); EOSINOPHILS PERCENT AUTO 3 % (0-6); Hematocrit 22.6 % (37.0-53.0); Hemoglobin 7.1 g/dL (13.5-17.5); IMMATURE GRAN ABSOLUTE AUTO 0.05 K/mm3 (0.00-0.10); IMMATURE GRAN PERCENT AUTO 1 % (0-1); LYMPHOCYTES ABSOLUTE AUTO 1.87 K/mm3 (0.84-5.20); LYMPHOCYTES PERCENT AUTO 17 % (21-46); MONOCYTES ABSOLUTE AUTO 0.95 K/mm3 (0.16-1.47); MONOCYTES PERCENT AUTO 9 % (4-13); Mean Corpuscular HGB 27.4 pg (26.0-34.0); Mean Corpuscular HGB Conc 31.4 g/dL (31.5-36.5); Mean Corpuscular Volume 87 fL (80-100); Mean Platelet Volume 9.8 fL (9.1-12.4); NEUTROPHILS ABSOLUTE AUTO 7.55 K/mm3 (1.96-9.15); NEUTROPHILS PERCENT AUTO 70 % (41-73); Platelet Count 308 K/mm3 (150-400); RDW Coefficient Variation 18.3 % (11.7-14.2); Red Blood Cell Count 2.59 M/mm3 (4.30-5.90); White Blood Cell Count 10.72 K/mm3 (4.00-11.30)
[2021-02-06 05:17] LABS: Albumin, Blood 2.4 g/dL (3.4-5.0); Albumin/Globulin Ratio 0.6 (0.8-1.8); Bilirubin, Total 0.3 mg/dL (0.1-1.0); Calcium, Blood 7.8 mg/dL (8.5-10.1); Creatinine, Blood 2.64 mg/dL (0.60-1.20); Globulin, Blood 3.8 g/dL (2.2-4.0); Potassium, Blood 3.5 mmol/L (3.5-5.5); Total Protein, Blood 6.2 g/dL (6.4-8.2); Troponin I 0.092 ng/mL (0.000-0.040)
[2021-02-06 10:07] LABS: SARS-Cov-2 (COVID-19) PCR, MMC NEGATIVE (NEGATIVE)
[2021-02-06 11:12] LABS: Hematocrit 22.5 % (37.0-53.0); Hemoglobin 6.9 g/dL (13.5-17.5)
[2021-02-06 11:36] LABS: Troponin I 0.087 ng/mL (0.000-0.040)
--- NOTE | 2021-02-06 18:10 | NUR ---
Shift Summary A/Ox4, pleasant and cooperative with care. Up with SBA to bathroom, urinal at bedside. Medicated x 2 for whole R sided pain r/t frequent falls at home, good effect provided. Worked with PT/OT today, tolerated well. No bowel movements this shift, voiding good. Tele: SR 68. Denies nausea, vomiting. Protonix infusing. Total of 2 PRBC's given this shift, second one currently infusing. Awaiting EGD. WCTM and report to oncoming RN.
--- NOTE | 2021-02-06 19:13 | NUR ---
PT DENIES PAIN IN ABD, NO NAUSEA OR VOMITING AT THIS TIME. History, Chart, Medications and Allergies reviewed before start of Patient confirms NPO status and agrees with scheduled surgery. procedure.Lungs clear T/O to Auscultation. PT HAS RECEIVED TWO UNITS OF BLOOD TODAY PER RN. ALL BELONINGS EXCEPT GLASSES LEFT IN PT ROOM 342.
--- NOTE | 2021-02-06 21:34 | NUR ---
02/06/21 2134 SOLANGE COULTER History, Chart, Medications and Allergies reviewed before start of procedure. O2 VIA POM INTACT THROUGHOUT SEDATION/PROCEDURE. 3-LEAD EKG REVIEWED WITH PHYSICIAN PRIOR TO START OF PROCEDURE. MONITOR INTACT WITH CONTINUOUS PULSE OXIMETRY AND INTERMITTENT BP. MAC WITH DR. SANCHEZ.
[2021-02-06 22:42] LABS: Hemoglobin 10.2 g/dL (13.5-17.5)
[2021-02-07 06:39] LABS: Hematocrit 29.1 % (37.0-53.0); Hemoglobin 9.4 g/dL (13.5-17.5); Mean Corpuscular HGB 27.7 pg (26.0-34.0); Mean Corpuscular HGB Conc 32.3 g/dL (31.5-36.5); Mean Corpuscular Volume 86 fL (80-100); Mean Platelet Volume 9.7 fL (9.1-12.4); Platelet Count 318 K/mm3 (150-400); RDW Coefficient Variation 17.9 % (11.7-14.2); RDW Standard Deviation 55.4 fL (35.1-46.3); Red Blood Cell Count 3.39 M/mm3 (4.30-5.90); White Blood Cell Count 10.24 K/mm3 (4.00-11.30)
--- NOTE | 2021-02-07 06:47 | NUR ---
SHIFT SUMMARY PATIENT ALERT AND ORIENTED. MEDICATED PER EMAR FOR PAIN. PATIENT HAD NO COMPLAINTS OF CHEST PAIN OR SHORTNESS OF BREATH. HE IS RECOVERING WELL FROM HIS ENDOSCOPY PROCEDURE. IV PATENT AND INFUSING. BED IN LOWEST POSITION WITH WHEELS LOCKED AND ALARM ON. CALL LIGHT WITHIN REACH. REPORT GIVEN TO ONCJAD WOODARD.
[2021-02-07 07:10] LABS: Albumin, Blood 2.6 g/dL (3.4-5.0); Anion Gap 8 mmol/L (6-16); Blood Urea Nitrogen 37 mg/dL (8-24); Bun/Creatinine Ratio 14.5 (12.0-20.0); CO2, Blood 26 mmol/L (21-32); Calcium, Blood 8.4 mg/dL (8.5-10.1); Chloride, Blood 100 mmol/L (98-108); Creatinine, Blood 2.55 mg/dL (0.60-1.20); Glomerular Filtration Rate 28 (60-); Glucose, Blood 190 mg/dL (70-99); Phosphorus, Blood 5.1 mg/dL (2.5-4.9); Potassium, Blood 3.2 mmol/L (3.5-5.5); Sodium, Blood 134 mmol/L (136-145)
[2021-02-07] MEDS ORDERED: PANT20 PO (15:37)
[2021-02-07] MEDS ORDERED: ASCO500 PO (15:38)
[2021-02-07] MEDS ORDERED: DOCU100 PO (15:39)
--- NOTE | 2021-02-07 17:46 | NUR ---
PT AOX4 AND COOPERATIVE OF CARE. PT HAS BEEN COMPLAINING OF ONGOING FATIGUE, YET SEEMS TO BE DOING WELL AT THIS TIME. PT IS A ONE PERSON TO RESTROOM WITH WALKER AND GAITBELT. PT REPORTS HE WAS VERY WEAK AT HOME AND FELL A LOT PRIOR TO ADMIT. PHYSICAL THERAPY HAD SAFETY CONCERNS FOR PT RETURNING HOME. DISCHARGE TO DAY HAS BEEN POSTPONED. WILL CONTINUE TO MONITOR.
--- NOTE | 2021-02-07 17:49 | NUR ---
PT REFUSED AM SEMGLEE INSULING DOSE AND REQUESTED LONG ACTING BE ADMINISTERED AT BEDTIME. DR ANTOINE NOTIFIED AND CHANGED INSULIN ON EMAR.
--- NOTE | 2021-02-08 04:01 | NUR ---
SHIFT SUMMARY PATIENT HAD NO ACUTE CHANGES OBSERVED. AXOX 3 AND ONE ASSIST W/FWW GAIT BELT TO [facility]. PIVS REMAIN INTACT. CBG 220. REPORTED RIGHT SIDE PAIN FROM SHOULDER TO KNEE X TWO AND IV FENTANYL 25 MCG GIVEN PER EMAR. VSS/AFEBRILE. DENIES SOB AND N/V. COOPERATIVE WITH CARE. CALL LIGHT IN REACH. BED IN LOWEST POSITION. WILL CONTINUE TO MONITOR UNTIL DAY SHIFT NURSE ASSUMES CARE.
[2021-02-08 05:01] LABS: Hematocrit 29.3 % (37.0-53.0); Hemoglobin 9.3 g/dL (13.5-17.5)
[2021-02-08 05:20] LABS: Albumin, Blood 2.5 g/dL (3.4-5.0); Anion Gap 7 mmol/L (6-16); Blood Urea Nitrogen 37 mg/dL (8-24); CO2, Blood 29 mmol/L (21-32); Calcium, Blood 8.6 mg/dL (8.5-10.1); Chloride, Blood 99 mmol/L (98-108); Creatinine, Blood 2.46 mg/dL (0.60-1.20); Glomerular Filtration Rate 29 (60-); Glucose, Blood 177 mg/dL (70-99); Phosphorus, Blood 5.5 mg/dL (2.5-4.9); Potassium, Blood 3.3 mmol/L (3.5-5.5); Sodium, Blood 135 mmol/L (136-145)
[2021-02-08] MEDS ORDERED: SENN187 PO (14:27)
[2021-02-08] MEDS ORDERED: Norco 5-325 Ta1 EACH PO (14:29)
--- NOTE | 2021-02-08 17:22 | NUR ---
PT DISCHARGED AT 1545 WITH ALL PAPERWORK REVIEWED AND EDUCATIONAL MATERIAL SENT. PT COLLECTED ALL PERSONAL BELONGINGS AND HAD HIS PERSONAL MEDICATION RETURNED FROM PHARMACY. PT WAS ESCORTED OUT VIA WHEEL CHAIR. PT ONE PERSON TRANSFER TO WHEELCHAIR. PT ESCORTED TO [facility] AND WAS TRANSPORTED BY FRIENDS. NO DISTRESS NOTED.
[2021-02-09] MEDS ORDERED: XARELTO20 MG PO (16:19)
[2021-02-09] MEDS ORDERED: METF500 PO (16:22)
[2021-02-09] MEDS ORDERED: FERSU300 PO (16:22)
[2021-02-09] MEDS ORDERED: CLOP75 PO (17:25)
[2021-02-09] MEDS ORDERED: Aspir 8181 MG PO (17:26)
[2021-02-09] MEDS ORDERED: INSULANPEN SC (17:27)
[2021-02-09] MEDS ORDERED: NOVOLOG FL100 UNIT/3 SC (17:28)
== END 2021-02-08 15:50 | disposition home health service (06) | DRG 812 ==
LOC: ER 18:19 → ERHOLD 18:20 → MEDS 18:20
PROVIDERS: Internal Medicine; Physician Assistant; Student in an Organized Health Care Education/Training Program; ADMIT Internal Medicine
PROC: 30233N1 Transfusion of Nonautologous Red Blood Cells into Peripheral Vein, Percutaneous Approach (ICD-10-PCS; 2021-02-06)
PROC: 0DJ08ZZ Inspection of Upper Intestinal Tract, Via Natural or Artificial Opening Endoscopic (ICD-10-PCS; principal; 2021-02-06 18:30)
DX: D62 Acute posthemorrhagic anemia (principal); K92.2 Gastrointestinal hemorrhage, unspecified; N17.9 Acute kidney failure, unspecified; E87.1 Hypo-osmolality and hyponatremia; I13.0 Hypertensive heart and chronic kidney disease with heart failure and stage 1 through stage 4 chronic kidney disease, or unspecified chronic kidney disease; I50.32 Chronic diastolic (congestive) heart failure; D68.32 Hemorrhagic disorder due to extrinsic circulating anticoagulants; Z20.822 Contact with and (suspected) exposure to COVID-19; T45.515A Adverse effect of anticoagulants, initial encounter; E87.6 Hypokalemia; E11.22 Type 2 diabetes mellitus with diabetic chronic kidney disease; N18.30 Chronic kidney disease, stage 3 unspecified; D50.9 Iron deficiency anemia, unspecified; G43.909 Migraine, unspecified, not intractable, without status migrainosus; I25.10 Atherosclerotic heart disease of native coronary artery without angina pectoris; K21.9 Gastro-esophageal reflux disease without esophagitis; E78.5 Hyperlipidemia, unspecified; J44.9 Chronic obstructive pulmonary disease, unspecified; N40.0 Benign prostatic hyperplasia without lower urinary tract symptoms; E11.40 Type 2 diabetes mellitus with diabetic neuropathy, unspecified; G47.33 Obstructive sleep apnea (adult) (pediatric); E66.9 Obesity, unspecified; R53.81 Other malaise; F17.210 Nicotine dependence, cigarettes, uncomplicated; Z95.5 Presence of coronary angioplasty implant and graft; Z68.31 Body mass index [BMI] 31.0-31.9, adult; Z86.73 Personal history of transient ischemic attack (TIA), and cerebral infarction without residual deficits; Z87.11 Personal history of peptic ulcer disease; Z88.2 Allergy status to sulfonamides; Z79.899 Other long term (current) drug therapy; Z79.02 Long term (current) use of antithrombotics/antiplatelets; Z79.4 Long term (current) use of insulin
CPT/HCPCS: 36415; 36430; 70450; 71045; 80053; 80069; 82272; 82550; 82947; 83540; 83550; 83880; 84484; 85014; 85018; 85025; 85027; 86850; 86900; 86901; 86923; 93005; 93010; 96365; 96375; 96376; 97110; 97116; 97162; 97166; 97530; 99285-25; A9270; C9113; G0378; J1940; J2405; J2704; J3010; J7030; P9016; U0004

== ENCOUNTER 2021-02-09 15:17 | Emergency (ER) | payer OTHER ==
[~2021-02-09] VITALS: Ht 177.8 cm; Wt 96.6 kg
[~2021-02-09 15:17] MED LIST changes: +ASCO500 PO; +ESCI10 PO; +PANT20 PO; +XARELTO20 MG PO
[2021-02-09 16:09] LABS: BASOPHILS ABSOLUTE AUTO 0.03 K/mm3 (0.00-0.23); BASOPHILS PERCENT AUTO 0 % (0-2); EOSINOPHILS ABSOLUTE AUTO 0.26 K/mm3 (0.00-0.68); EOSINOPHILS PERCENT AUTO 2 % (0-6); Hematocrit 28.9 % (37.0-53.0); Hemoglobin 9.1 g/dL (13.5-17.5); IMMATURE GRAN ABSOLUTE AUTO 0.06 K/mm3 (0.00-0.10); IMMATURE GRAN PERCENT AUTO 0 % (0-1); LYMPHOCYTES ABSOLUTE AUTO 1.14 K/mm3 (0.84-5.20); LYMPHOCYTES PERCENT AUTO 8 % (21-46); MONOCYTES PERCENT AUTO 6 % (4-13); Mean Corpuscular HGB 27.5 pg (26.0-34.0); Mean Corpuscular HGB Conc 31.5 g/dL (31.5-36.5); Mean Corpuscular Volume 87 fL (80-100); Mean Platelet Volume 10.5 fL (9.1-12.4); NEUTROPHILS ABSOLUTE AUTO 12.31 K/mm3 (1.96-9.15); NEUTROPHILS PERCENT AUTO 84 % (41-73); Platelet Count 368 K/mm3 (150-400); RDW Coefficient Variation 17.2 % (11.7-14.2); RDW Standard Deviation 55.1 fL (35.1-46.3); Red Blood Cell Count 3.31 M/mm3 (4.30-5.90)
[2021-02-09 16:19] LABS: Albumin, Blood 2.5 g/dL (3.4-5.0); Albumin/Globulin Ratio 0.6 (0.8-1.8); Bilirubin, Total 0.3 mg/dL (0.1-1.0); Bun/Creatinine Ratio 16.4 (12.0-20.0); Calcium, Blood 8.3 mg/dL (8.5-10.1); Creatinine, Blood 2.93 mg/dL (0.60-1.20); Globulin, Blood 4.2 g/dL (2.2-4.0); Potassium, Blood 4.5 mmol/L (3.5-5.5); Total Protein, Blood 6.7 g/dL (6.4-8.2)
[2021-02-09] MEDS ORDERED: XARELTO20 MG PO (16:19)
[2021-02-09] MEDS ORDERED: FERSU300 PO (16:22)
[2021-02-09] MEDS ORDERED: METF500 PO (16:22)
[2021-02-09 16:25] LABS: Calcium, Ionized (POC) 1.19 mmol/L (1.10-1.46); Chloride (POC) 99 mmol/L (98-108); Creatinine (POC) 3.2 mg/dL (0.8-1.3); Glucose (ISTAT POC) 176 mg/dL (70-99); Hemoglobin (POC) 9.9 g/dL (13.5-17.5); Potassium (POC) 3.8 mmol/L (3.5-5.5); Sodium (POC) 134 mmol/L (135-148); Total CO2 (POC) 22 mmol/L (21-32)
[2021-02-09] MEDS ORDERED: CLOP75 PO (17:25)
[2021-02-09] MEDS ORDERED: Aspir 8181 MG PO (17:26)
[2021-02-09] MEDS ORDERED: INSULANPEN SC (17:27)
[2021-02-09] MEDS ORDERED: NOVOLOG FL100 UNIT/3 SC (17:28)
== END 2021-02-09 18:49 | disposition home or self-care (01) ==
LOC: ER 15:17
PROVIDERS: Emergency Medicine
DX: I95.9 Hypotension, unspecified (principal); E86.0 Dehydration; I13.0 Hypertensive heart and chronic kidney disease with heart failure and stage 1 through stage 4 chronic kidney disease, or unspecified chronic kidney disease; E11.22 Type 2 diabetes mellitus with diabetic chronic kidney disease; N18.9 Chronic kidney disease, unspecified; K21.9 Gastro-esophageal reflux disease without esophagitis; I25.10 Atherosclerotic heart disease of native coronary artery without angina pectoris; E78.5 Hyperlipidemia, unspecified; J44.9 Chronic obstructive pulmonary disease, unspecified; F17.210 Nicotine dependence, cigarettes, uncomplicated; Z88.2 Allergy status to sulfonamides; Z87.19 Personal history of other diseases of the digestive system; Z79.899 Other long term (current) drug therapy; Z79.02 Long term (current) use of antithrombotics/antiplatelets; Z79.82 Long term (current) use of aspirin
CPT/HCPCS: 36415; 80047; 80053; 85014; 85025; 86850; 86900; 86901; 93005; 93010; 99285-25

== ENCOUNTER 2021-03-24 13:33 | Emergency (ER) | payer OTHER ==
[~2021-03-24] VITALS: Ht 177.8 cm; Wt 96.6 kg
[~2021-03-24 13:33] MED LIST changes: +NOVOLOG FL100 UNIT/3 SC
[2021-03-24 14:34] LABS: BASOPHILS ABSOLUTE AUTO 0.06 K/mm3 (0.00-0.23); BASOPHILS PERCENT AUTO 0 % (0-2); EOSINOPHILS ABSOLUTE AUTO 0.42 K/mm3 (0.00-0.68); EOSINOPHILS PERCENT AUTO 3 % (0-6); Hematocrit 27.9 % (37.0-53.0); Hemoglobin 8.7 g/dL (13.5-17.5); IMMATURE GRAN ABSOLUTE AUTO 0.06 K/mm3 (0.00-0.10); IMMATURE GRAN PERCENT AUTO 0 % (0-1); LYMPHOCYTES ABSOLUTE AUTO 1.65 K/mm3 (0.84-5.20); LYMPHOCYTES PERCENT AUTO 12 % (21-46); MONOCYTES ABSOLUTE AUTO 0.94 K/mm3 (0.16-1.47); MONOCYTES PERCENT AUTO 7 % (4-13); Mean Corpuscular HGB 26.5 pg (26.0-34.0); Mean Corpuscular HGB Conc 31.2 g/dL (31.5-36.5); Mean Corpuscular Volume 85 fL (80-100); Mean Platelet Volume 9.5 fL (9.1-12.4); NEUTROPHILS ABSOLUTE AUTO 10.45 K/mm3 (1.96-9.15); NEUTROPHILS PERCENT AUTO 77 % (41-73); Platelet Count 458 K/mm3 (150-400); RDW Coefficient Variation 15.7 % (11.7-14.2); RDW Standard Deviation 49.1 fL (35.1-46.3); Red Blood Cell Count 3.28 M/mm3 (4.30-5.90); White Blood Cell Count 13.58 K/mm3 (4.00-11.30)
[2021-03-24 14:44] LABS: Albumin, Blood 2.5 g/dL (3.4-5.0); Albumin/Globulin Ratio 0.5 (0.8-1.8); Bilirubin, Total 0.2 mg/dL (0.1-1.0); Bun/Creatinine Ratio 18.6 (12.0-20.0); Calcium, Blood 8.9 mg/dL (8.5-10.1); Creatinine, Blood 3.11 mg/dL (0.60-1.20); Globulin, Blood 5.4 g/dL (2.2-4.0); Potassium, Blood 3.1 mmol/L (3.5-5.5); Total Protein, Blood 7.9 g/dL (6.4-8.2)
[2021-03-24 15:04] LABS: Source, Urine Catheter
[2021-03-24 15:29] LABS: Appearance, Urine Clear (Clear); Bilirubin, Urine Neg (Neg); Blood, Urine Neg (Neg); Color, Urine Yellow (P-Yellow); Glucose Qualitative, Urine Neg (Neg); Ketones, Urine Neg (Neg); Leukocyte Esterase, Urine Neg (Neg); Nitrite, Urine Neg (Neg); Protein, Urine 3+ (Neg); Specific Gravity, Urine 1.015 (1.003-1.022); Urobilinogen, Urine NORM (Normal)
[2021-03-24 15:51] LABS: Hyaline Casts 0-2 /lpf (0-2)
[2021-03-24 15:52] LABS: Bacteria Few /hpf; Red Blood Cells, Urine 0-2 /hpf (0-2); Spermatozoa Few /hpf; Squamous Epithelial Cells Rare /hpf (Few); White Blood Cells, Urine 0-2 /hpf (0-5)
== END 2021-03-24 17:21 | disposition home or self-care (01) ==
LOC: ER 13:33
PROVIDERS: Emergency Medicine
DX: I13.0 Hypertensive heart and chronic kidney disease with heart failure and stage 1 through stage 4 chronic kidney disease, or unspecified chronic kidney disease (principal); E11.22 Type 2 diabetes mellitus with diabetic chronic kidney disease; N18.30 Chronic kidney disease, stage 3 unspecified; D63.1 Anemia in chronic kidney disease; I50.9 Heart failure, unspecified; R33.9 Retention of urine, unspecified; E11.40 Type 2 diabetes mellitus with diabetic neuropathy, unspecified; E78.00 Pure hypercholesterolemia, unspecified; K21.9 Gastro-esophageal reflux disease without esophagitis; F17.210 Nicotine dependence, cigarettes, uncomplicated; Z88.2 Allergy status to sulfonamides; Z79.899 Other long term (current) drug therapy
CPT/HCPCS: 36415; 51702; 51798; 76770; 76870; 80053; 80069; 81001; 85018; 85025; 93005; 93010; 99285-25

== ENCOUNTER 2021-05-15 03:35 | Inpatient (IN) | payer OTHER ==
[~2021-05-15] VITALS: Ht 180.3 cm; Wt 102.0 kg
[2021-05-15 03:58] LABS: PCO2 Arterial 45.1 mmHg (35-45); pH Blood Arterial 7.27 (7.35-7.45)
[2021-05-15 04:08] LABS: BASOPHILS ABSOLUTE AUTO 0.08 K/mm3 (0.00-0.23); BASOPHILS PERCENT AUTO 0 % (0-2); EOSINOPHILS ABSOLUTE AUTO 0.33 K/mm3 (0.00-0.68); EOSINOPHILS PERCENT AUTO 2 % (0-6); Hematocrit 32.9 % (37.0-53.0); Hemoglobin 9.8 g/dL (13.5-17.5); IMMATURE GRAN ABSOLUTE AUTO 0.09 K/mm3 (0.00-0.10); IMMATURE GRAN PERCENT AUTO 0 % (0-1); LYMPHOCYTES PERCENT AUTO 8 % (21-46); MONOCYTES ABSOLUTE AUTO 0.92 K/mm3 (0.16-1.47); MONOCYTES PERCENT AUTO 4 % (4-13); Mean Corpuscular HGB 25.4 pg (26.0-34.0); Mean Corpuscular HGB Conc 29.8 g/dL (31.5-36.5); Mean Corpuscular Volume 85 fL (80-100); Mean Platelet Volume 9.9 fL (9.1-12.4); NEUTROPHILS ABSOLUTE AUTO 17.81 K/mm3 (1.96-9.15); NEUTROPHILS PERCENT AUTO 85 % (41-73); Platelet Count 386 K/mm3 (150-400); RDW Standard Deviation 53.1 fL (35.1-46.3); Red Blood Cell Count 3.86 M/mm3 (4.30-5.90); White Blood Cell Count 20.93 K/mm3 (4.00-11.30)
[2021-05-15 04:29] LABS: Alanine Aminotransfer (ALT/SGP 22 U/L (12-78); Albumin, Blood 2.3 g/dL (3.4-5.0); Albumin/Globulin Ratio 0.5 (0.8-1.8); Alk Phos 115 U/L (50-136); Anion Gap 8 mmol/L (6-16); Aspartate Aminotrans (AST/SGOT 21 U/L (12-37); Bilirubin, Total 0.1 mg/dL (0.1-1.0); Blood Urea Nitrogen 30 mg/dL (8-24); Bun/Creatinine Ratio 11.5 (12.0-20.0); CO2, Blood 19 mmol/L (21-32); Calcium, Blood 7.4 mg/dL (8.5-10.1); Chloride, Blood 111 mmol/L (98-108); Creatinine, Blood 2.62 mg/dL (0.60-1.20); Globulin, Blood 4.7 g/dL (2.2-4.0); Glomerular Filtration Rate 25 (60-); Glucose, Blood 254 mg/dL (70-99); Magnesium, Blood 2.4 mg/dL (1.6-2.4); Potassium, Blood 4.3 mmol/L (3.5-5.5); Sodium, Blood 138 mmol/L (136-145); Troponin I <0.015 ng/mL (0.000-0.040)
[2021-05-15] MEDS ORDERED: METF500 PO (05:47)
[2021-05-15] MEDS ORDERED: BUME2 PO (05:48)
[2021-05-15] MEDS ORDERED: BUMETANIDE2 M4 PO (11:51)
[2021-05-15] MEDS ORDERED: TRAM50 PO (11:51)
[2021-05-15] MEDS ORDERED: NEURONTIN300 MG PO (11:52)
[2021-05-15] MEDS ORDERED: TAMSULOSIN HCL0.4 M1 PO (11:53)
[2021-05-15 15:13] LABS: Thyroid Stimulating Hormone 0.98 uIU/mL (0.360-4.800)
[2021-05-16 05:01] LABS: BASOPHILS ABSOLUTE AUTO 0.03 K/mm3 (0.00-0.23); BASOPHILS PERCENT AUTO 0 % (0-2); EOSINOPHILS ABSOLUTE AUTO 0.25 K/mm3 (0.00-0.68); EOSINOPHILS PERCENT AUTO 3 % (0-6); Hematocrit 27.7 % (37.0-53.0); Hemoglobin 8.1 g/dL (13.5-17.5); IMMATURE GRAN ABSOLUTE AUTO 0.02 K/mm3 (0.00-0.10); IMMATURE GRAN PERCENT AUTO 0 % (0-1); LYMPHOCYTES ABSOLUTE AUTO 1.53 K/mm3 (0.84-5.20); LYMPHOCYTES PERCENT AUTO 16 % (21-46); MONOCYTES ABSOLUTE AUTO 0.74 K/mm3 (0.16-1.47); MONOCYTES PERCENT AUTO 8 % (4-13); Mean Corpuscular HGB 24.9 pg (26.0-34.0); Mean Corpuscular HGB Conc 29.2 g/dL (31.5-36.5); Mean Corpuscular Volume 85 fL (80-100); Mean Platelet Volume 10.2 fL (9.1-12.4); NEUTROPHILS ABSOLUTE AUTO 7.24 K/mm3 (1.96-9.15); NEUTROPHILS PERCENT AUTO 74 % (41-73); Platelet Count 266 K/mm3 (150-400); RDW Standard Deviation 52.7 fL (35.1-46.3); Red Blood Cell Count 3.25 M/mm3 (4.30-5.90); White Blood Cell Count 9.81 K/mm3 (4.00-11.30)
[2021-05-16 05:06] LABS: pH Blood Arterial 7.37 (7.35-7.45)
[2021-05-16 05:07] LABS: PCO2 Arterial 36.4 mmHg (35-45); PO2 Arterial 90.2 mmHg (80-100)
[2021-05-16 05:20] LABS: Magnesium, Blood 2.3 mg/dL (1.6-2.4)
[2021-05-16 05:21] LABS: Albumin, Blood 2.1 g/dL (3.4-5.0); Albumin/Globulin Ratio 0.5 (0.8-1.8); Bilirubin, Total 0.2 mg/dL (0.1-1.0); Bun/Creatinine Ratio 13.7 (12.0-20.0); Calcium, Blood 8.3 mg/dL (8.5-10.1); Creatinine, Blood 2.49 mg/dL (0.60-1.20); Globulin, Blood 4.2 g/dL (2.2-4.0); Phosphorus, Blood 3.7 mg/dL (2.5-4.9); Potassium, Blood 3.6 mmol/L (3.5-5.5); Total Protein, Blood 6.3 g/dL (6.4-8.2)
--- NOTE | 2021-05-16 06:47 | NUR ---
SHIFT SUMMARY: AOX3, COOPERATIVE. MEDICATED PER EMAR FOR PAIN. LUNG SOUNDS DIMINISHED WITH SOME WHEEZES. FEELS THERE IS A BAND AROUND HIS CHEST. BREATHING TREATMENTS HELP, WAS ON BIPAP DURING THE NIGHT AND DID WELL. GOOD APPETITE. NO COUGH NOTED THIS SHIFT. USES THE URINAL AT BEDSIDE. VS WNL, AFEBRILE. BLOOD PRESSURE DOWN TO 169/86. MILD EDEMA NOTED. NO OTHER CHANGES TO REPORT. CALL LIGHT IN REACH.
--- NOTE | 2021-05-16 15:50 | NUR ---
TRANSFER PT TRANSFERRED TO ROOM 406 THIS SHIFT. REPORT GIVEN TO SRINIVASAN JORDAN RN. NO ACUTE CHANGES NOTED TO PT THIS SHIFT. PT AAOX4, ABLE TO MAKE NEEDS KNOWN, PLEASANT AND COOPERATIVE TO CARE. MEDICATED FOR PAIN PER EMAR. 24HR URINE COLLECTION ONGOING. PT REMAINS ON 2LPM O2 BASELINE. SATS >92%. PT TRANSPORTED VIA BED.
--- NOTE | 2021-05-16 17:21 | NUR ---
PT HAS A PILONIDAL CYST- LSPINE. DRAINING LIGHT BROWN/STAFFORD DRAINAGE WITH ANY PRESSURE TO AREA. SIGNIFICANT ODOR NOTED TO AREA. HIDRADENITIS SUPPURATIVA IN GROIN BILATERAL. PT UNDERWARE SATURATED WITH DRAINAGE. AREAS CLEANED. BED BATH GIVEN. CLEAN GOWN, UNDERGARMENT AND BEDDING GIVEN FOR COMFORT.
--- NOTE | 2021-05-16 18:30 | NUR ---
BERE WAS TRANSFERRED FROM [facility] TO OUR DEPARTMENT THIS AFTERNOON. HE IS A PLESANT MAN. HE STATES THAT HE HAS 3-5 FALLS DAILY WHILE AT HOME. HE STATES THAT HE HAS HAD MULTIPLE STROKES. HE CAME WITH A 24 HOUR URINE COLLECTION CONTAINERS. THIS WILL END AT 2230 TONIGHT. HE WAS COVID NEG IN ER OF 05/15. HE HAS 2 IV'S - R AC AND LHAND THAT ARE NOT BEING USED AT THIS TIME. RT TO COME IN TONIGHT TO SET UP HIS BIPAP. HE IS A 2 PERSON MAX ASSIST. SRIDEVI DID PARTIAL BED BATH- FULL MID BODY. BG WAS 176 THIS EVENING.
--- NOTE | 2021-05-16 20:09 | NUR ---
PER PATIENT HIS LAST BM WAS ON 05/13/21.
--- NOTE | 2021-05-16 21:54 | NUR ---
SPOKE WITH PHARMACIST REGARDING PATIENTS INSULIN DOSES AND PHARMACIST STATED HE WOULD BRING DOWN THE INSULIN SYRINGES THAT HAD BEEN ORDERED. PATIENT NOTIFIED REGARDING THIS
[2021-05-16 22:59] LABS: Protein, Urine Quantitative 125.3 mg/dL (0.0-11.9)
--- NOTE | 2021-05-17 01:29 | NUR ---
PATIENT CALL LIGHT ON. PATIENT REQUESTING TO HAVE URINAL EMPTIED AND A DIET PEPSI. STATES HIS FAN STOPPED WORKING AND HE IS FEELING VERY WARM AT THIS TIME. I EMPTIED URINAL, GOT THE DIET PEPSI AND FOUND BATTERIES FOR HIS BEDSIDE FAN. PATIENT IS VERY APPRECIATIVE AND ASKS TO LEAVE HIS DOORS OPEN ON BOTH SIDES FOR SOME AIR CIRCULATION.
--- NOTE | 2021-05-17 01:52 | NUR ---
RESPIRATORY THERAPY CALLED AT 0145 AND ASKED TO COME AND SET UP PATIENTS BIPAP.
--- NOTE | 2021-05-17 02:00 | NUR ---
RESPIRATORY THERAPY HERE AND BIPAP SET AND ON PATIENT. PATIENT HAS NO ADDITIONAL NEEDS AT THIS TIME
--- NOTE | 2021-05-17 05:58 | NUR ---
PATIENT AWAKE FOR LAB DRAW AND DISCUSSION WAS HAD WITH PATIENT REGARDING THE RASH IN THE GROIN AREA. A CLEAN PILLOW CASE WAS PLACED UNDER TESTICLES AND ALONG THE GROIN CREASE TO TRY AND HELP DRY OUT THE AREA. PATIENT EXPRESSED AREA WAS PAINFUL TO TOUCH AND LEFT TESTICLE WAS MORE TENDER AND HE FELT PULLING IN HIS LEFT TESTICLE WITH URINATION.
[2021-05-17 06:15] LABS: BASOPHILS ABSOLUTE AUTO 0.03 K/mm3 (0.00-0.23); BASOPHILS PERCENT AUTO 0 % (0-2); EOSINOPHILS PERCENT AUTO 4 % (0-6); Hematocrit 27.5 % (37.0-53.0); Hemoglobin 8.3 g/dL (13.5-17.5); IMMATURE GRAN ABSOLUTE AUTO 0.02 K/mm3 (0.00-0.10); IMMATURE GRAN PERCENT AUTO 0 % (0-1); LYMPHOCYTES ABSOLUTE AUTO 1.61 K/mm3 (0.84-5.20); LYMPHOCYTES PERCENT AUTO 20 % (21-46); MONOCYTES ABSOLUTE AUTO 0.65 K/mm3 (0.16-1.47); MONOCYTES PERCENT AUTO 8 % (4-13); Mean Corpuscular HGB 25.5 pg (26.0-34.0); Mean Corpuscular HGB Conc 30.2 g/dL (31.5-36.5); Mean Corpuscular Volume 85 fL (80-100); Mean Platelet Volume 9.8 fL (9.1-12.4); NEUTROPHILS ABSOLUTE AUTO 5.48 K/mm3 (1.96-9.15); NEUTROPHILS PERCENT AUTO 68 % (41-73); Platelet Count 272 K/mm3 (150-400); RDW Coefficient Variation 16.6 % (11.7-14.2); RDW Standard Deviation 51.4 fL (35.1-46.3); Red Blood Cell Count 3.25 M/mm3 (4.30-5.90); White Blood Cell Count 8.09 K/mm3 (4.00-11.30)
[2021-05-17 06:27] LABS: Albumin, Blood 2.1 g/dL (3.4-5.0); Anion Gap 7 mmol/L (6-16); Blood Urea Nitrogen 33 mg/dL (8-24); Bun/Creatinine Ratio 13.9 (12.0-20.0); CO2, Blood 22 mmol/L (21-32); Calcium, Blood 8.3 mg/dL (8.5-10.1); Chloride, Blood 108 mmol/L (98-108); Creatinine, Blood 2.38 mg/dL (0.60-1.20); Glomerular Filtration Rate 28 (60-); Glucose, Blood 138 mg/dL (70-99); Magnesium, Blood 2.5 mg/dL (1.6-2.4); Phosphorus, Blood 3.7 mg/dL (2.5-4.9); Potassium, Blood 3.7 mmol/L (3.5-5.5); Sodium, Blood 137 mmol/L (136-145)
--- NOTE | 2021-05-17 08:55 | NUR ---
PT IS SITTING UP IN BED, FINISHED HIS BREAKFAST. HE STATES 5/10 PAIN IN THE AREA OF HIS PIDONYL CYST. PAIN MEDICATION IS NOT DUE YET. HE IS INSTRUCTED ON HOW TO COLLECT A CLEAN CATCH URINE SPECIMEN AND WILL COLLECT WHEN HE IS READY. CALL LIGHT IS IN REACH AND DOORS ARE LEFT OPEN AT PT REQUEST.
[2021-05-17 09:44] LABS: Source, Urine Clean Catch
[2021-05-17 09:52] LABS: Bilirubin, Urine Neg (Neg); Blood, Urine 1+ (Neg); Glucose Qualitative, Urine 1+ (Neg); Ketones, Urine Neg (Neg); Leukocyte Esterase, Urine Neg (Neg); Nitrite, Urine Neg (Neg); Protein, Urine 4+ (Neg); Specific Gravity, Urine 1.015 (1.003-1.022); Urobilinogen, Urine NORM (Normal)
[2021-05-17 10:01] LABS: Appearance, Urine Clear (Clear); Color, Urine Yellow (P-Yellow)
[2021-05-17 10:03] LABS: Bacteria Rare /hpf; Red Blood Cells, Urine 0-2 /hpf (0-2); Squamous Epithelial Cells Rare /hpf (Few); White Blood Cells, Urine 0-2 /hpf (0-5)
--- NOTE | 2021-05-17 11:15 | NUR ---
RHODA FROM [facility]/US DEPARTMENT CALLED AND SHE SAYS SHE WILL CLARIFY ORDERS WITH DR. CEJA AND THEN BE DOWN TO PREFORM US.
--- NOTE | 2021-05-17 12:12 | NUR ---
US IN NOW TO EVAL ISSUES WITH SCROTUM ORDERED BY DR. WARD
--- NOTE | 2021-05-17 12:58 | NUR ---
PT USING HOUSE PHONE TO CALL FRIENDS. VERY SOCIAL AND IN A GOOD MOOD AT THIS TIME. VERY POLITE AND RESPECTFUL.
--- NOTE | 2021-05-17 15:46 | NUR ---
5179 COMPLETED DISCHARGE INSTRUCTIONS WITH PATIENT. REVIEWED COLOSTOMY SUPPLIES WITH PT. GATHERED UP BELONGINGS TO TAKE HOME. DECLINED INCENTIVE SPIROMETRY. PT STATES HE CAN DEEP BREATH. PT IS VERY EXCITED TO BE GOING HOME. PT DISCHARGED VIA WC TO VEHICLE.
--- NOTE | 2021-05-17 17:11 | NUR ---
THE DRESSING OVER THE PILONYDL CYST WAS CHANGED. THERE WAS A MONDERATE AMOUNT OF GRAYISH COLORED DISCHARGE ON THE ABD PAD. PT TOLERATED WELL. SHAMPOOED CAP DONE TO HAIR.
--- NOTE | 2021-05-17 17:14 | NUR ---
SOFT CLOTH IS PLACED BETWEEN GROIN AND SCROTUM FOR COMFORT DUE TO REDNESS AND IRRITATION.
--- NOTE | 2021-05-17 18:42 | NUR ---
PT DID NOT HAVE ANY BM ON OUR SHIFT. DR. WARD INFORMED OF NO BM SINCE 05/13. STATES WILL PLACE ON BOWEL PROTOCOL. DID NOT SEE ORDER YET. ACTIVE BT X 4. DENIES PAIN OR DISCOMFORT IN ABDOMEN. ABDOMEN SOFT. C/O HEADACHE BUT REFUSES TYLENOL. STATES DOES NOT HELP
--- NOTE | 2021-05-18 01:25 | NUR ---
LATE ENTRY RT UP AT [address] PATIENT ON BIPAP.
--- NOTE | 2021-05-18 03:26 | NUR ---
PATIENT REQUESTED THAT BIPAP BE REMOVED STATING THAT IT WAS UNCOMFORTABLE. WHEN MASK REMOVED PATIENT HAD REDDNESS ON FACE WHERE THE MASK WAS SITTING, RN ASKED IF MASK HAD BEEN TOO TIGHT, PATIENT STATED YES. REFUSED TO WEAR O2 VIA NC STATING THAT HE THINKS HE WILL BE DISCHARGED TODAY AND HE DOES NOT WEAR OXYGEN AT HOME.
--- NOTE | 2021-05-18 05:50 | NUR ---
PATIENT RESTING THROUGHOUT NIGHT, USES CALL LIGHT TO GET UP TO BR WITH FWW AND SBA. CPAP ON AT 2300 AND REMOVED AT 0200. PATIENT STATED THAT IT WAS UNCOMFORTABLE. CALL LIGHT WITHIN REACH.
[2021-05-18 06:10] LABS: Hematocrit 27.1 % (37.0-53.0)
[2021-05-18 06:42] LABS: Albumin, Blood 2.1 g/dL (3.4-5.0); Anion Gap 7 mmol/L (6-16); Blood Urea Nitrogen 32 mg/dL (8-24); Bun/Creatinine Ratio 15.2 (12.0-20.0); CO2, Blood 23 mmol/L (21-32); Calcium, Blood 8.3 mg/dL (8.5-10.1); Chloride, Blood 107 mmol/L (98-108); Creatinine, Blood 2.11 mg/dL (0.60-1.20); Glomerular Filtration Rate 32 (60-); Glucose, Blood 113 mg/dL (70-99); Magnesium, Blood 2.2 mg/dL (1.6-2.4); Phosphorus, Blood 4.6 mg/dL (2.5-4.9); Potassium, Blood 3.5 mmol/L (3.5-5.5); Sodium, Blood 137 mmol/L (136-145)
--- NOTE | 2021-05-18 11:32 | NUR ---
CHANGED PT CYST DRESSING. MODERATE AMOUNT OF GRAYISH DISCHARGE NOTED ON ABD PAD. NEW ABD & MEFIX TAPE PLACE. PT TOW, THANKFUL FOR DRESSING CHANGE. PT IN GOOD SPIRITS. RESTING COMFORTABLY, CALL LIGHT IN REACH, WILL CONTINUE TO MONITOR.
[2021-05-18] MEDS ORDERED: METO50ER PO (13:05)
[2021-05-18] MEDS ORDERED: BUME2 PO (13:06)
[2021-05-18] MEDS ORDERED: DOXY100 PO (13:06)
--- NOTE | 2021-05-18 13:58 | NUR ---
DISCHARGE NOTE: DISCHARGE INSTRUCTION COMPLETE W/ PT. PT STATES AN UNDERSTANDING WITH NO QUESTIONS OR CONCERNS AT THIS TIME.
--- NOTE | 2021-05-18 14:24 | NUR ---
PT ASSISTED TO CAR IN WC TO DISCHARGE HOME AT 1421 BY RN.
[2021-05-20 11:10] LABS: ALDOS/RENIN RATIO >72.5 (0.0-30.0); ALDOSTERONE 12.1 ng/dL (0.0-30.0)
[2021-05-21 07:11] LABS: METANEPHRINE, UR 42 ug/L (Undefined)
== END 2021-05-18 14:21 | disposition home or self-care (01) | DRG 291 ==
LOC: ER 03:35 → MEDS 06:08 → ERHOLD 06:08 → MEDS 17:28 → ORSCIP 05-16 15:32
PROVIDERS: Emergency Medicine; Family Medicine; Internal Medicine Nephrology; ADMIT Family Medicine
PROC: 5A09357 Assistance with Respiratory Ventilation, Less than 24 Consecutive Hours, Continuous Positive Airway Pressure (ICD-10-PCS; principal; 2021-05-15)
DX: I13.0 Hypertensive heart and chronic kidney disease with heart failure and stage 1 through stage 4 chronic kidney disease, or unspecified chronic kidney disease (principal); I50.33 Acute on chronic diastolic (congestive) heart failure; J96.01 Acute respiratory failure with hypoxia; J96.02 Acute respiratory failure with hypercapnia; I16.1 Hypertensive emergency; N17.9 Acute kidney failure, unspecified; E87.2 Acidosis; N18.30 Chronic kidney disease, stage 3 unspecified; E11.22 Type 2 diabetes mellitus with diabetic chronic kidney disease; Z86.73 Personal history of transient ischemic attack (TIA), and cerebral infarction without residual deficits; G43.909 Migraine, unspecified, not intractable, without status migrainosus; G47.33 Obstructive sleep apnea (adult) (pediatric); L73.2 Hidradenitis suppurativa; D63.1 Anemia in chronic kidney disease; N50.82 Scrotal pain; Z95.5 Presence of coronary angioplasty implant and graft; Z88.2 Allergy status to sulfonamides; K21.9 Gastro-esophageal reflux disease without esophagitis; J44.9 Chronic obstructive pulmonary disease, unspecified; E11.40 Type 2 diabetes mellitus with diabetic neuropathy, unspecified; Z98.890 Other specified postprocedural states; Z88.8 Allergy status to other drugs, medicaments and biological substances; Z79.4 Long term (current) use of insulin; Z79.899 Other long term (current) drug therapy; E21.3 Hyperparathyroidism, unspecified
CPT/HCPCS: 36415; 36600; 71045; 74176; 76870; 80053; 80069; 81001; 81050; 82088; 82530; 82570; 82803; 82947; 83605; 83735; 83835; 83880; 84100; 84145; 84156; 84244; 84443; 84484; 84550; 84585; 85014; 85018; 85025; 93005; 93010; 93975; 94660; 94760; 94762; 96374; 97110; 97116; 97162; 97530; 99285-25; A9270; J0360; J0881; J1650; J1815; J1940